=== PATIENT | female | born 1990 | race African-American/Black ===

== ENCOUNTER 2024-08-16 00:01 | Outpatient (REF) | payer OTHER, SELFPAY ==
--- OUTSIDE RECORDS SUMMARY | 2018-08-30 10:13 | XMS_ITS | Continuity of Care Document ---
Author Organization [facility] Address [address] [place] [address] Phone Care Team Providers Care Managed Care Director Name Role Phone Clifford Karen CHAPPELL Unavailable Unavaila ble Advance Directives Directive Yes / No Effective Date File Name No Information Encounters Encounter Description Practice Location Reason(s) For Visit Diagnoses Date Provider Providers Copied on Encounter [facility], [address] [place] [address], [id number], [place] tel:[phone] [facility] No Information Clifford [place] Jones. [address], [place], [id number], [place]. tel:[phone] Family History Family Member Type Diagnosis Age [...]
--- OUTSIDE RECORDS SUMMARY | 2024-08-16 15:30 | XMS_ITS | Encounter Summary ---
Author Organization [facility] Address [address] [place] [address] Care Team Providers Care R&D Engineer Name Role Phone Carlos Whitley MD Primary Care Provider [phone] Reason for Visit * Reason Comments Colposcopy Encounter Details Date Type Department Care Team ([facility] Contact Info) Description 08/16/2024 3:30 PM EDT Procedure Visit [facility] [address] [place] [id number] Bandar Williamson, DO [address] [facility] [place] [address] LGSIL on Pap smear of cervix Social History Tobacco Use Types Packs/Day Years Used Date Smoking Tobacco: Every Day Cigarettes Comments:Patient smokes 6-10 cigarettes/day after 6-30 minutes of waking up. Thinking about quitting. Alcohol Use Standard Drinks/Week Comments Yes 0 (1 standard drink = 0.6 oz pure alcohol) caffeine: 2-3 cups of tea per day cut back to 2 daily AUDIT-C Answer Date Recorded Q1: How often do you have a drink containing alc ohol? Monthly or less 03/27/2024 Q2: How many drinks containi ng alcohol do you have on a typical day when you are drinking? 1 or 2 03/27/2024 Q3: How often do you have si x or more drinks on one occasion? Less than monthly 03/27/2024 PHQ-2 Answer Date Recorded Patient Health Questionnaire-2 Score 0 03/27/2024 Education Answer Date Recorded What is the highest level of school you have completed or the highest degree you have received? Some college, no degree 12/17/2022 Comments No Sex and Gender Information Value Date Recorded Sex Assigned at Not on file Legal Sex Female 6:39 PM EDT Gender Identity Not on file Sexual Orientation Not on file documented as of this encounter Last Filed Vital Signs Vital Sign Reading Time Taken Comments Blood Pressure 116/70 08/16/2024 3:57 PM EDT Pulse - - Temperature - - Respiratory Rate - - Oxygen Saturation - - Inhaled Oxygen Concentration - - Weight 74.4 kg (164 lb) 08/16/2024 3:57 PM EDT Height - - Body Mass Index 27.29 06/29/2022 12:00 PM EDT documented in this encounter Plan of Treatment Upcoming Encounters Date Type Department Care Team (Late st Contact Info) Description 02/27/2025 9:00 AM EST Procedure Visit [facility] [address] [facility] [place] [address] TeriBandar valdez DO [address] [place] [address] [place] [address] Scheduled Orders Name Type Priority Associated Diagnoses Orde r Schedule Colposcopy Procedures Routine LGSIL on Pap smear of cervix Expected: 08/16/2024 (Approximate), Expires: 08/16/2025 Colposcopy Procedures Routine LGSIL on Pap smear of cervix Ordered: 08/16/2024 documented as of this encounter Procedures Procedure Name Priority Date/Time Associated Diagnosis Comments POCT , URINE Routine 08/16/2024 4:05 PM EDT LGSIL on Pap smear of cervix documented in this encounter Results * POC , urine (08/16/2024 4:05 PM EDT) Preg Test, Ur Negative Negative Urine 08/16/2024 4:05 PM EDT Bandar Williamson DO POINT OF CARE TEST ENTER/EDIT OR DERABLES Final Result documented in this encounter Visit Diagnoses Diagnosis LGSIL on Pap smear of cervix documented in this encounter Care Teams R&D Engineer Relationship Specialty Start Date End Date Carlos Whitley MD [address] [place] [address] PCP - General Pediatrics 03/27/24 documented as of this encounter
--- OUTSIDE RECORDS SUMMARY | 2024-08-18 06:45 | XMS_ITS ---
Author Organization [facility] Address [address] [place] [address] Care Team Providers Care Tumbling Machine Operator Name Role Phone Mercy Braga Primary Care Provider REASON FOR VISIT THROAT PAIN-WANTING ENT REFERRAL Encounters Encounter Location Date Provider Diagnosis [facility] [address] [place] [address] 08/18/2024 Mercy Braga Plan Of Treatment Next Appt Details Provider Name:Mercy kee, 08/24/2024 02:45:00 PM, [address] [facility] [place], [address], Progress Notes * SAMARA TRIANADOB:[birth year] (34 yo F)Acc No.[id number]:08/18/2024 Progress Notes Patient: Corrine MAHAN SAMARA Provider: ELAINE Garzon :1990 A ge:34 Y S ex:Female Date:08/18/2024 Address:[address] [place] [address] [place], [phone] Subjective: * Chief Complaints: * 1 . THROAT PAIN-WANTING ENT REFERRAL. * Medical History: Objective: * Vitals: Assessment: Plan: * Treatment: * Images: * Electronic signature of Saige Braga CNP on 08/24/2024 at 09:22 AM EDT Sign off status: Pending * Provider: ELAINE Garzon Date: 0 08/18/2024 Generated for Yarely vazquez/Hazel/Yobani on: 0 08/24/2024 09:22 AM EDT
--- OUTSIDE RECORDS SUMMARY | 2024-08-24 09:22 | XMS_ITS | Encounter Summary ---
Author Organization [facility] Address [address] [place] [address] Phone Care Team Providers Care Hand Buffer Name Role Phone Enma Jeffrey MD Primary Care Provider [phone] Encounter Details Date Type Department Care Team ([facility] Contact Info) Description 08/15/2024 Orders Only [facility] [place] [address] [facility] [address] [place] [address] Gloria Hamilton, HEEL WHEELER-INDUSTRIAL MAINTENANCE INSTRUCTOR, HEEL WHEELER-POLISHING MACHINE OPERATOR [address] Department [place] [address] АЛЕКСАНДР (generalized anxiety disorder) Social History Tobacco Use Types Packs/Day Years Used Date Smoking Tobacco: Some Days Cigarettes Smokeless Tobacco: Never Comments Unknown Sex and Gender Information Value Date Recorded Sex Assigned at Female 07/21/2023 10:38 AM EDT Legal Sex Female 11:16 AM EST Gender Identity Female 07/21/2023 10:38 AM EDT Sexual Orientation Straight 07/21/2023 10 :38 AM EDT documented as of this encounter Plan of Treatment Upcoming Encounters Date Type Department Care Team ([facility] Contact Info) Description 08/30/2024 11:30 AM EDT Telemedicine [facility] [address] [place] [address] [address] [place] [phone] Gloria Hamilton, HEEL WHEELER-INDUSTRIAL MAINTENANCE INSTRUCTOR, HEEL WHEELER-POLISHING MACHINE OPERATOR [address] [place] [address] documented as of this encounter Visit Diagnoses Diagnosis АЛЕКСАНДР (generalized anxiety disorder) Generalized anxiety disorder documented in this encounter Care Teams Hand Buffer Relationship Specialty Start Date End Date Enma Jeffrey MD [address] as of 11/15/2015 [place] [address] PCP - General 10/05/14 documented as of this encounter
--- OUTSIDE RECORDS SUMMARY | 2024-08-24 09:22 | XMS_ITS | Clinical Summary ---
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 benefit for anxious sx. Expressing motivation to reduce clonazepam use. Has been attempting to skip doses recently. We discussed risk for w/d sx, and that best approach is gradual reduction over time. Encouraged to start with decreasing one dose by 1/2 tablet for several weeks, and that in many cases it's best to defer further dose reduction for a month or more. Continue venlafaxine ER 75 mg PO daily. She will attempt reduction of clonazepam by 1/2 tab daily (e.g. take 1/2 tab PO daily, 1 tab in the afternoon, and 1 tab at bedtime) over the next month. Reviewed OARRS, no discrepancies or concerns. Discussed risk of motor/cognitive impairment, sedation, dependence, tolerance, abuse, withdrawal sequelae, accidental overdose, life-threatening respiratory depression (gene. in combination with alcohol and/or opioids), excess sedation in combination with other sedating medicines. Goal is to taper off of clonazepam as routine medications and non-pharmacologic strategies reach benefit. UDS from 10/26 consistent with current rx's and report cannabis use. No discrepancies. Assessment & Plan (10/27/2023 6:28 PM EDT): Reports worsening anxious and depressive sx over the past several weeks. Still notes overall benefit from venlafaxine, but seems to have waned somewhat. Receptive to further titration. Discussed indication(s), reviewed risks/benefits/alternatives. Increase venlafaxine ER to 75 mg PO daily. Continue clonazepam 0.5 mg PO TID- refill sent to pharmacy today. Reviewed OARRS, no discrepancies or concerns. Discussed risk of motor/cognitive impairment, sedation, dependence, tolerance, abuse, withdrawal sequelae, accidental overdose, life-threatening respiratory depression (gene. in combination with alcohol and/or opioids), excess sedation in combination with other sedating medicines. Goal is to taper off of clonazepam as routine medications and non-pharmacologic strategies reach benefit. UDS collected in-office today. Assessment & Plan (08/25/2023 11:01 AM EDT): Tolerated starting venlafaxine with some initial drowsiness that has since resolved, and some mild, intermittent GI upset that is also improving. Noting benefit after ~6 weeks. Will continue current dose. Continue venlafaxine ER 37.5 mg PO daily- refill sent to [facility] pharmacy today. Continue clonazepam 0.5 mg PO TID- refill on file at [facility] pharmacy. Reviewed OARRS, no discrepancies or concerns. Discussed risk of motor/cognitive impairment, sedation, dependence, tolerance, abuse, withdrawal sequelae, accidental overdose, life-threatening respiratory depression (gene. in combination with alcohol and/or opioids), excess sedation in combination with other sedating medicines. Goal is to taper off of clonazepam as routine medications and non-pharmacologic strategies reach benefit. Assessment & Plan (07/21/2023 5:58 PM EDT): Self-tapered off of fluoxetine d/t concern for weight gain as a side effect. Anxious sx have worsened since tapering off. Discussed alternatives and will start venlafaxine. Discussed indication(s), reviewed risks/benefits/alternatives. Self-discontinued fluoxetine. Start venlafaxine ER 37.5 mg PO daily. Continue clonazepam 0.5 mg PO TID- refill sent to pharmacy today. Reviewed OARRS, no discrepancies or concerns. Discussed risk of motor/cognitive impairment, sedation, dependence, tolerance, abuse, withdrawal sequelae, accidental overdose, life-threatening respiratory depression (gene. in combination with alcohol and/or opioids), excess sedation in combination with other sedating medicines. Goal is to taper off of clonazepam as routine medications and non-pharmacologic strategies reach benefit. Assessment & Plan (03/04/2023 2:24 PM EST): Tolerating and benefiting from current regimen. No indication for medication changes today. Continue fluoxetine 40 mg PO daily- no refill needed today. Continue clonazepam 0.5 mg PO TID- no refill needed today. Reviewed OARRS, no discrepancies or concerns. Discussed risk of motor/cognitive impairment, sedation, dependence, tolerance, abuse, withdrawal sequelae, accidental overdose, life-threatening respiratory depression (gene. in combination with alcohol and/or opioids), excess sedation in combination with other sedating medicines. Goal is to taper off of clonazepam as routine medications and non-pharmacologic strategies reach benefit. Assessment & Plan (01/13/2023 2:34 PM EST): Tolerating and benefiting from current regimen. No indication for medication changes today. Discussed sleep hygiene and that difficulty sleeping, as well as daytime fatigue is likely r/t inadequate sleep. Identified strategies to improve this and acknowledged/validated challenges she's facing d/t the multiple demands placed on her. Would not recommend PRN medication for sleep at this time. Continue fluoxetine 40 mg PO daily- refill sent to pharmacy today. Continue clonazepam 0.5 mg PO TID- refill sent to pharmacy today. Reviewed OARRS, no discrepancies or concerns. Discussed risk of motor/cognitive impairment, sedation, dependence, tolerance, abuse, withdrawal sequelae, accidental overdose, life-threatening respiratory depression (gene. in combination with alcohol and/or opioids), excess sedation in combination with other sedating medicines. Goal is to taper off of clonazepam as routine medications and non-pharmacologic strategies reach benefit. Contact with and (suspected) exposure to covid-1 9 09/02/2021 Opioid withdrawal (Multi) 09/02/2021 Overview (04/20/2024): Comment on above: Added secondary to documentation in Social History. Smoking (tobacco) complicating childbirth ([facility]) 09/02/2021 Patient's noncompliance with other medical treatment and regimen due to financial hardship 09/02/2021 Maternal care for other know n or suspected poor growth, third trimester, not applicable or unspecified 08/28/2021 Low lying placenta nos or wi thout hemorrhage, unspecified trimester ([facility]) 04/30/2021 Encounter for screening for Streptococ cus B 04/09/2021 ([facility]) 05/20/2019 Encounters Date Type Department Care Team Description 08/15/2024 Orders Only [facility] [address] [place] [address] Gloria Hamilton, MANAGER CODING-HOME VISIT FIELD CARE MANAGER, MANAGER CODING-INTEGRATION SOFTWARE DEVELOPER АЛЕКСАНДР (generalized anxiety disorder) 07/26/2024 11:00 AM EDT [facility] [address] [place] [address] Gloria Hamilton, MANAGER CODING-HOME VISIT FIELD CARE MANAGER, MANAGER CODING-INTEGRATION SOFTWARE DEVELOPER АЛЕКСАНДР (generalized anxiety disorder); Current moderate episode of major depressive disorder, unspecified whether recurrent (Multi); Opioid use disorder, moderate, in sustained remission, dependence (Multi); Marijuana dependence (Multi) 07/03/2024 Refill [facility] [address] [place] [address] Gloria Hamilton APRN-HOME VISIT FIELD CARE MANAGER, MANAGER CODING-INTEGRATION SOFTWARE DEVELOPER АЛЕКСАНДР (generalized anxiety disorder) 06/13/2024 Orders Only [facility] [place] [address] [place] [phone] Gloria Hamilton, RJ-[place], MANAGER CODING-INTEGRATION SOFTWARE DEVELOPER Opioid use disorder, moderate, in sustained remission, dependence (Multi) 05/25/2024 2:00 PM EDT Telemedicine [facility] [address] [place] [address] Gloria Hamilton, RJ-HOME VISIT FIELD CARE MANAGER, MANAGER CODING-INTEGRATION SOFTWARE DEVELOPER АЛЕКСАНДР (generalized anxiety disorder); Current moderate episode of major depressive disorder, unspecified whether recurrent (Multi); Opioid use disorder, moderate, in sustained remission, dependence (Multi); Marijuana dependence (Multi) from Last 3 Months Immunizations Immunization Administration Dates Next Due Flu vaccine (IIV4), preservative free *Check age /dose* 11/19/2014 Influenza, injectable, quadrivalent 11/19/2014 Tdap vaccine, age 7 year and older (BOOSTRIX, AD ACEL) 11/08/2014,03/23/2012 Social History Tobacco Use Types Packs/Day Years Used Date Smoking Tobacco: Some Days Cigarettes Smokeless Tobacco: Never Tobacco Cessation:Ready to Q uit: Not Asked; Counseling Given: Not Answered Comments Unknown Sex and Gender Information Value Date Recorded Sex Assigned at Female 07/21/2023 10:38 AM EDT Legal Sex Female 11:16 AM EST Gender Identity Female 07/21/2023 10:38 AM EDT Sexual Orientation Straight 07/21/2023 10 :38 AM EDT Last Filed Vital Signs Vital Sign Reading Time Taken Comments Blood Pressure 131/84 10/27/2023 11:35 AM EDT Pulse 82 10/27/2023 11:35 AM EDT Temperature 36.9 C (98.4 F) 10/27/2023 11:35 AM EDT Respiratory Rate 18 10/27/2023 11:3 5 AM EDT Oxygen Saturation 100% 03/04/2022 10: 05 AM EST Inhaled Oxygen Concentration - - Weight 70.6 kg (155 lb 11.2 oz) 024 11:35 AM EDT Height 162.6 cm (5' 4 ) 10/27/2023 11:3 5 AM EDT Body Mass Index 26.73 10/27/2023 11:35 AM EDT Plan of Treatment Upcoming Encounters Date Type Department Care Team (Late st Contact Info) Description 08/30/2024 11:30 AM EDT Telemedicine [facility] [address] [place] [address] Gloria Hamilton, MANAGER CODING-HOME VISIT FIELD CARE MANAGER, MANAGER CODING-INTEGRATION SOFTWARE DEVELOPER [id number] Department [place] [address] Health Maintenance Due Date Last Done Comments HIV Screening 1989 Lipid Panel 1989 MMR Vaccines (1 of 1 - Standard series) 1990 Varicella Vaccines (1 of 2 - 13+ 2-dose series) 2002 Diabetes Screening 04/24/2007 Hepatitis C Screening 04/24/2007 Hepatitis B Vaccines (1 of 3 - 19+ 3-dose series) 2008 Pneumococcal Vaccine: Pediatrics and At-Risk Adult Patients (1 of 2 - PCV) 2008 HPV/Cotest 2010 COVID-19 Vaccine (1 - 2023-2 5 season) 2023 Influenza Vaccine (Season Ended) 2024 11/19/2014, 11/19/2014 DTaP/Tdap/Td Vaccines (3 - T d or Tdap) 11/08/2024 11/08/2014, 03/23/2012 Yearly Adult Physical 03/28/2025 03/27/2024 Cervical Cancer Screening 03/27/2027 Pap Smear 03/27/2027 03/27/2024 Zoster Vaccines (1 of 2) 04/24/2039 HIB Vaccines Aged Out No longer eligi ble based on patient's age to complete this topic HPV Vaccines (No Doses Required) Completed Hepatitis A Vaccines Aged Out No long er eligible based on patient's age to complete this topic IPV Vaccines Aged Out No longer eligi ble based on patient's age to complete this topic Meningococcal Vaccine Aged Out No bean fitz eligible based on patient's age to complete this topic Rotavirus Vaccines Aged Out No longer eligible based on patient's age to complete this topic Insurance [employer] Care Teams Iv Therapy Nurse Relationship Specialty Start Date End Date Enma Jeffrey MD [address] as of 11/15/2015 [place] [phone] PCP - General 10/05/14
--- OUTSIDE RECORDS SUMMARY | 2024-08-24 09:22 | XMS_ITS | Clinical Summary ---
Author Organization [facility] Address [address] [place] [address] Care Team Providers Care Irrigation Foreman Name Role Phone PriyaKasi (Historical) Primary Care Provider Enma Jeffrey MD Unavailable [phone] Allergies Active Allergy Reactions Criticality Noted Date Comments Acetaminophen Vomiting 08/27/2011 Medications buprenorphine-n alOXone SL (SUBOXONE) 8-2 mg subl Buprenorphine-N aloxone Active 8 MG SUBLINGUAL Three times daily November 19, 2017 10:37am 6 Active clonazePAM (KLONOPIN) 0.5 mg tablet Take by mouth. 0 Active PNV no.95/ferrous fum/folic ac ( ORAL) Take by mouth. Active docusate sodium (COLACE) 100 mg capsule Take 1 capsule by mouth twice daily. 60 capsule 5 1 Active promethazine (PHENERGAN) 25 mg tablet Take 1 tablet by mouth every 4 hours as needed. 30 tablet 2 Active Active Problems No known active problems Family History Medical History Relation Comments Alcohol abuse Father Bipolar disorder Father Hypertension Father Bipolar disorder Paternal Uncle 1 Schizophrenia Paternal Uncle 1 Bipolar disorder Paternal Uncle 2 Bipolar disorder Sister 1 Bipolar disorder Sister 2 Relation Status Comments Father Paternal Uncle 1 Alive Paternal Uncle 2 Alive Paternal Uncle 3 Paternal Uncle 4 Sister 1 Sister 2 Alive Social History Tobacco Use Types Packs/Day Years Used Date Smoking Tobacco: Every Day Smokeless Tobacco: Never Alcohol Use Standard Drinks/Week Comments Not Currently 0 (1 standard drink = 0.6 oz pur e alcohol) Overall Financial Resource Strain (CARDIA) Answe r Date Recorded How hard is it for you to pa y for the very basics like food, housing, medical care, and heating? Somewhat hard 02/03/2021 Hunger Vital Sign Answer Date Recorded Within the past 12 months, y ou worried that your food would run out before you got the money to buy more. Never true 02/04/20 21 Within the past 12 months, t he food you bought just didn't last and you didn't have money to get more. Never true 02/03/2021 PRAPARE - Transportation Answer Date Re corded In the past 12 months, has l ack of transportation kept you from medical appointments or from getting medications? No 01/22 In the past 12 months, has l ack of transportation kept you from meetings, work, or from getting things needed for daily living? No 02/03/2021 Housing Stability Vital Sign Answer Domo e Recorded In the last 12 months, was t here a time when you were not able to pay the mortgage or rent on time? No 02/03/2021 In the last 12 months, how many places have you lived? 1 02/03/2021 In the last 12 months, was t here a time when you did not have a steady place to sleep or slept in a mcfp (including now)? No 02/03/2021 Area Deprivation Index Answer Date Jatinder rded National Score (1-100), lower number is lower ri sk 86 04/03/2024 State Score (1-10), lower number is lower risk 8 04/03/2024 Data from: https://www.neighborhoodatlas.medicine.[facility].edu/. Last address used for calculation [address] 04/03/2024 Comments No Sex and Gender Information Value Date Recorded Sex Assigned at Female 01/26/2021 2:42 AM EST Legal Sex Female 10:15 AM EST Gender Identity Female 01/26/2021 2:42 AM EST Sexual Orientation Not on file Last Filed Vital Signs Vital Sign Reading Time Taken Comments Blood Pressure 112/68 01/28/2021 1:34 PM EST Pulse 95 01/28/2021 1:34 PM EST Temperature 36.4 C (97.6 F) 08/27/2011 11:04 PM EDT Respiratory Rate 18 08/28/2011 2:55 AM EDT Oxygen Saturation 98% 08/28/2011 2:55 AM EDT Inhaled Oxygen Concentration - - Weight 59 kg (130 lb) 01/28/2021 1:34 PM EST Height 166.4 cm (5' 5.5 ) 01/28/2021 1:34 PM EST Body Mass Index 21.3 01/28/2021 1:34 PM EST Plan of Treatment Health Maintenance Due Date Last Done Comments Anxiety Screening 04/24/2007 Depression Screening 04/24/2007 HIV Screening 04/24/2007 Hepatitis C Screening 04/24/2007 Hepatitis B Vaccine (1 of 3 - 19+ 3-dose series) 2008 Covid-19 Vaccine (2023-2 5 season) 2023 Cervical Cancer Screening 01/29/20242020, 01/28/2021, 07/27/2011 Influenza Vaccine (Season Ended) 2024 11/20/19 15 DTaP,Tdap,Td Vaccine (3 - Td or Tdap) 11/08/2024 11/08/2014, 03/23/2012 Procedures Procedure Name Priority Date/Time Associated Diagnosis Comments PAP FLUID CERVICAL SCREENING Routine 01/28/2021 2:26 PM EST 10 weeks gestation of care, subsequent in first trimester Drug abuse counseling and surveillance of drug abuser from Last 3 Months or Most Recently Relevant to Health Maintenance Results * (ABNORMAL) PAP FLUID CERVICAL SCREENING (01/28/2021 2:26 PM EST) Stock Room Manager ADDITIONAL PROCEDURES PRESENT ---Abnormal Pap Test - Epithelial Cell Abnormality--- Specimen originated from [facility] Specimen #: [id number] Submitting Physician: RIDDHI BUCKNER M.D. SPECIMEN SUBMITTED A: CERVICAL, SCREENING, FLUID FINAL DIAGNOSIS A. CERVICAL, SCREENING, FLUID Satisfactory for interpretation. Epithelial cell abnormality. Atypical squamous cells cannot exclude high grade squamous intraepithelial lesion (ASC-H). COMMENT: Suggest colposcopy/biopsy as clinically indicated. Results from the ASCUS/LSIL triage study found that interpretations of ASC-H were associated with a higher risk of underlying HSIL (JOE 2 or worse; 30-40%). This case has been reviewed by my colleague, Dr. Mercy Leyva (Cytology/[facility]colo [facility] Pathology), who concurs. This specimen has been analyzed by the ThinPrep Imaging System, an automated imaging and review system, which assists the laboratory in evaluating cells on ThinPrep Pap tests. Following automated imaging, selected prabhakar from every slide are reviewed by a airplane rigger. Seda Paez M.D. (Electronic Signature) ADDITIONAL PROCEDURE(S) HUMAN PAPILLOMA VIRUS Date Ordered: 01/29/2021 Date Reported: 01/30/2021 Procedure Results and Interpretation Negative for HPV DNA high risk type 16 by PCR. Negative for HPV DNA high risk type 18 by PCR. Negative for HPV DNA high risk types: 31,33,35,39,45,51, 52,56,58,59,66,68 by PCR. This test was developed and its performance characteristics determined by [facility]'s Cortez Sharma [facility] Pathology and Laboratory Medicine [place] ([facility]). It has not been cleared or approved by the FDA. [facility] is regulated under CLIA as qualified to perform high-complexity testing. This test is used for clinical purposes. It should not be regarded as investigational or for research. CLINICAL DATA ROUTINE EXAM, HPV Testing: Yes, automatic HPV patients over 30 Date of Last Menstrual Period: 11/19/2020( ) STAINS A: CERVICAL, SCREENING, FLUID THIN PREP LONG HAUL TRUCK DRIVER Date of Report: 02/04/2021 Date of Procedure: 01/28/2021 Date of Receipt: 01/29/2021 Submitted by: RIDDHI BUCKNER M.D. Location: [facility] Diagnostic interpretation performed at [facility], [address] [place] [address]. [place] Number: [id number] The Pap Smear is a screening test for cervical cancer. False negative results occur with all screening tests, emphasizing the need for rescreening at recommended intervals, and clinical correlation.(A) COPATHPLUS Cervix SPECIMEN FROM CERVIX OR VAGINA / Unknown 01/28/2021 2:26 PM EST 01/29/2021 12:19 PM EST Riddhi Buckner MD CYTOLOGY Edited Result - Final COPATHPLUS [address] [place] [address] from Last 3 Months or Most Recently Relevant to Health Maintenance Insurance [employer] Member Subscriber Plan / Payer (Ef fective 2022-Present) Name:Gloria Cunningham Relation to Subscriber:Self Name:Gloria Cunningham Payer ID:[id number] (NAIC) Group ID:[id number] Type:Medicaid Address: [place] [id number] Care Teams Irrigation Foreman Relationship Specialty Start Date End Date JuneKasi (Historical) PCP - General 07/21/11 Enma Jeffrey MD [address] [place] [phone] Referring Classification And Treatment Director 03/31/24
--- OUTSIDE RECORDS SUMMARY | 2024-08-24 09:23 | XMS_ITS | Encounter Summary ---
Author Organization [facility] Address [address] [place] [address] Care Team Providers Care Cripple Chaser Name Role Phone Kasi Powers (Historical) Primary Care Provider Enma Jeffrey MD Unavailable [phone] Source Comments In the event this information is protected by the Federal Confidentiality of Alcohol and Drug AbusePatient Records regulations: The Federal rules restrict any use of the information to criminally investigate or prosecute any alcohol or drug abuse patient.[facility] Encounter Details Date Type Department Care Team ([facility] Contact Info) Description 03/26/2021 Patient Msg Obstetrics/Gynecology [address] [place] [address] Provider, Bienvenido Missed Appointment Social History Tobacco Use Types Packs/Day Years [...] place to sleep or slept in a detention (including now)? No 02/03/2021 Area Deprivation Index Answer Date Jatinder rded National Score (1-100), lower number is lower ri sk Not on file 07/24/2020 State Score (1-10), lower number is lower risk N ot on file 07/24/2020 Data from: https://www.neighborhoodatlas.medicine.[facility].edu/. Last address used for calculation Not on file 07/24/2020 Comments Yes Sex and Gender Information Value Date Recorded Sex Assigned at Female 01/26/2021 2:42 AM EST Legal Sex Female 10:15 AM EST Gender Identity Female 01/26/2021 2:42 AM EST Sexual Orientation Not on file documented as of this encounter Plan of Treatment Not on file documented as of this encounter Visit Diagnoses Not on filedocumented in this encounter Care Teams Cripple Chaser Relationship Specialty Start Date End Date June, Kasi Castle (Historical) PCP - General 07/21/11 nEma Jeffrey MD [address] [place] [address] Referring Adjunct Psychology Instructor 03/31/24 documented as of this encounter
--- OUTSIDE RECORDS SUMMARY | 2024-08-24 09:23 | XMS_ITS | Encounter Summary ---
Author Organization [facility] Address [address] [place] [address] Care Team Providers Care Watch Dial Printer Name Role Phone Carlos Whitley MD Primary Care Provider [phone] Encounter Details Date Type Department Care Team (Late st Contact Info) Description 08/16/2024 External Result Encounter [facility] External Department Unsolicited Bandar Williamson, DO [address] [place] [address] Social History Tobacco Use Types Packs/Day Years [...] EST Procedure Visit [facility] [address] [id number] Bandar Williamson, DO [address] [place] [address] documented as of this encounter Procedures Procedure Name Priority Date/Time Associated Diagnosis Comments PATHOLOGY REQUEST FOR LAB [facility] Routine 08/16/2024 12:00 AM EDT documented in this encounter Results * PATHOLOGY REQUEST FOR LAB [facility] (08/16/2024 12:00 AM EDT) PATHOLOGY REQUEST FOR LAB [facility] 08/23/2024 2:46 PM EDT [facility] Comment:See report. Scanned copy available in EMR. Other Topography unknown / Unknown 08/16/2024 08/17/2024 1:18 PM EDT Narrative [facility] - 08/23/2024 2:46 PM EDT ECC Bandar Williamson DO LAB BLOOD ORDERABLES Final Resul t [facility] [address] [place] [address], [facility] [address] [place] [address] documented in this encounter Visit Diagnoses Not on filedocumented in this encounter Care Teams Watch Dial Printer Relationship Specialty Start Date End Date Carlos Whitley MD [address] [place] [address] PCP - General Pediatrics 03/27/24 documented as of this encounter
--- OUTSIDE RECORDS SUMMARY | 2024-08-24 09:23 | XMS_ITS | Encounter Summary ---
Author Organization [facility] Address [address] [place] [id number] Care Team Providers Care Manager Contact Name Role Phone Kasi Powers (Historical) Primary Care Provider Enma Jeffrey MD Unavailable [phone] Source Comments In the event this information is protected by the Federal Confidentiality of Alcohol and Drug AbusePatient Records regulations: The Federal rules restrict any use of the information to criminally investigate or prosecute any alcohol or drug abuse patient.[facility] Encounter Details Date Type Department Care Team ([facility] Contact Info) Description 01/28/2021 Patient Msg Pediatrics [address] [place] [address] Provider, [facility] Pre-Stephanie consult Social History Tobacco Use Types Packs/Day Years Used Date Smoking Tobacco: Every Day Smokeless Tobacco: Never Alcohol Use Standard Drinks/Week Comments Not Currently 0 (1 standard drink = 0.6 oz pur e alcohol) Area Deprivation Index Answer Date Jatinder rded National Score (1-100), lower number is lower ri sk Not on file 07/24/2020 State Score (1-10), lower number is lower risk N ot on file 07/24/2020 Data from: https://www.neighborhoodatlas.medicine.[facility].edu/. Last address used for calculation Not on file 07/24/2020 Comments Yes Sex and Gender Information Value Date Recorded Sex Assigned at Female 01/26/2021 2:42 AM EST Legal Sex Female 10:15 AM EST Gender Identity Female 01/26/2021 2:42 AM EST Sexual Orientation Not on file COVID-19 Exposure Response Date Recorded In the last month, have you been in contact with someone who was confirmed or suspected to have Coronavirus / COVID-19? No / Unsure 01/28/2021 1:33 PM EST documented as of this encounter Plan of Treatment Not on file documented as of this encounter Visit Diagnoses Not on filedocumented in this encounter Care Teams Manager Contact Relationship Specialty Start Date End Date June, Kasi Castle (Historical) PCP - General 07/21/11 Enma Jeffrey MD [address] [facility] [address] [place] [address] Referring Salvage Worker 03/31/24 documented as of this encounter
--- OUTSIDE RECORDS SUMMARY | 2024-08-24 09:23 | XMS_ITS | Encounter Summary ---
Author Organization [facility] Address [address] [place] [id number] Care Team Providers Care Book Shelver Name Role Phone Kasi Powers (Historical) Primary Care Provider Enma Jeffrey MD Unavailable [phone] Source Comments In the event this information is protected by the Federal Confidentiality of Alcohol and Drug AbusePatient Records regulations: The Federal rules restrict any use of the information to criminally investigate or prosecute any alcohol or drug abuse patient.[facility] Encounter Details Date Type Department Care Team ([facility] Contact Info) Description 01/31/2021 Patient Msg Obstetrics/Gynecology [address] [place] [address] Provider, [facility] Social History Tobacco Use Types Packs/Day Years [...] place to sleep or slept in a prison (including now)? No 02/03/2021 Area Deprivation Index Answer Date Jatinder rded National Score (1-100), lower number is lower ri sk Not on file 07/24/2020 State Score (1-10), lower number is lower risk N ot on file 07/24/2020 Data from: https://www.neighborhoodatlas.medicine.[facility].edu/. Last address used for calculation Not on [...] on filedocumented in this encounter Care Teams Book Shelver Relationship Specialty Start Date End Date June, Kasi Castle (Historical) PCP - General 07/21/11 Enma Jeffrey MD [address] [facility] [address] [place] [id number] Referring Core Winder Machine Operator 03/31/24 documented as of this encounter
--- OUTSIDE RECORDS SUMMARY | 2024-08-24 09:23 | XMS_ITS | Patient Health Record ---
Author Organization [facility] Servic es Address [address] [place] [address] Care Team Providers Care Campus Security Officer Name Role Phone Mercy Braga Primary Care Provider Yumi Bentley Unavailable [phone] Norma Loco Unavailable [phone] Allergies No Known Allergies Results Component Value Reference Range Notes Urine Culture Reviewed date:03/14/2024 08:28:39 PM Interpretation: Performing Lab:, [facility], [address] [place] Notes/Report: HCG,Urine Reviewed date:03/12/2024 05:10:22 AM Interpretation: Performing Lab: Notes/Report: Name Collection Type:: Clean-Voided Midstream HCG Qualitative,Urine Negative Complete Blood Count Auto Di ff Reviewed date:03/12/2024 05:10:22 AM Interpretation: Performing Lab:, [facility], [address] [place] Notes/Report: For adults in ED, MDW > 20.0 may be associated with a higher risk of sepsis during the first 12 hrs of hospital admission White Blood Count 6.7 3.8-11.6 10*3/uL Uncorrected WBC 6.7 3.8-11.6 10*3/uL Red Blood Count 4.43 3.60-5.00 10*6/uL Hemoglobin 13.8 11.8-15.4 g/dL Hematocrit 40.4 34.0-46.4 % Mean Corpuscular Volume 91.2 80-100 fL Mean Corpuscular Hemoglobin 31.2 24.7-34.3 pg Mean Corpuscular HGB Conc 34.2 32.0-35.0 g/dL Red Cell Distribution Width 12.4 11.9-15.3 % Platelet Count 168 150-450 10*3/uL Mean Platelet Volume 9.3 6.3-10.7 fL Neutrophils % (Auto) 56.3 . % Lymphocytes % (Auto) 32.9 . % Monocytes % (Auto) 8.5 . % Eosinophils % (Auto) 1.2 . % Basophils % (Auto) 1.1 . % NRBC% 0.1 0-0.5 /100{WBC} Neutrophils # (Auto) 3.8 1.8-7.7 10*3/uL Lymphocytes # (Auto) 2.2 1.00-4.8 10*3/uL Monocytes # (Auto) 0.6 0.0-0.8 10*3/uL Eosinophils # (Auto) 0.1 0.0-0.45 10*3/uL Basophils # (Auto) 0.1 0.0-0.2 10*3/uL Monocyte Distribution Width 20.06 0.00-20.00 % Hepatic Panel Reviewed date:03/12/2024 05:10:22 AM Interpretation: Performing Lab:, [facility], [address] [place] Notes/Report: Total Protein 7.6 6.4-8.9 g/dL Albumin Level 4.3 3.5-5.7 g/dL Globulin 3.3 Albumin/Globulin Ratio 1.3 Bilirubin,Total 0.3 0.3-1.0 mg/dL Bilirubin,Direct 0.00 0.03-0.18 mg/dL If the DBIL is less than 0.1, IBIL is not able to be calculated. Bilirubin,Indirect 0.3 Aspartate Amino Transferase 18 13-39 U/L Alanine Aminotransferase 13 7-52 U/L Alkaline Phosphatase 55 34-104 U/L Basic Metabolic Panel Reviewed date:03/12/2024 05:10:22 AM Interpretation: Performing Lab: Notes/Report: Glucose 89 70-100 mg/dL Random Glucose Reference Range is dependent on time and content of last meal. Glucose of more than 200 mg/dL in a nonstressed, ambulatory subject supports the diagnosis of Diabetes Mellitus. ADA recommended reference range Blood Urea Nitrogen 14 7-25 mg/dL Sodium 137 136-145 mmol/L Potassium 4.7 3.5-5.1 mmol/L Chloride 105 98-107 mmol/L Carbon Dioxide 28.3 21.0-31.0 mmol/L Calcium 9.3 8.6-10.3 mg/dL Creatinine 0.97 0.60-1.20 mg/dL Estimated GFR >60.0 Anion Gap 8.4 6.0-15.0 meq/L Creatinine Clr Calc Pharmacy 78.86 Dipstick and Microscopic Reviewed date:03/12/2024 05:10:22 AM Interpretation: Performing Lab:, [facility], [address] [place] Notes/Report: Name Collection Type:: Clean-Voided Midstream Color,Urine Yellow Yellow Appearance,Urine Cloudy Clear Specificy Sur[place],Urine 1.029 1.001-1.030 pH,Urine 6.0 5.0-9.0 Leukocyte Esterase,Urine 3+ Negative Nitrite,Urine Negative Negative Protein,Urine 20 Negative mg/dL Glucose,Urine (UA) Normal Normal Ketones,Urine Trace Negative Urobilinogen,Urine Normal Normal Bilirubin,Urine Negative Negative Occult Blood,Urine Negative Negative RBC,Urine 1-2 0-4 [HPF] WBC,Urine 5-9 0-4 [HPF] Squamous Epithelial Cell,Urine 20-49 0-2 [HPF] Bacteria,Urine 1+ None Seen Hyaline Casts,Urine 0-8 0-8 [LPF] Mucus,Urine 2+ Strep Test Quickview (Not ye t reviewed by provider) Interpretation: Performing Lab: Notes/Report: Result negative Hemoglobin A1c (Not yet revi ewed by provider) Interpretation: Performing Lab: Notes/Report: Hemoglobin A1c 5.0 5 - 7.9 % Urinalysis automated (Not ye t reviewed by provider) Interpretation: Performing Lab: Notes/Report: Urine-Color yellow Appearance clear Specific Surprise 1.015 pH 6.0 Glucose neg Protein neg Occult Blood neg Bilirubin neg Urobilinogen,Semi-Qn 0.2 mg/dl Nitrite, Urine neg Ketones neg WBC Esterase neg Comprehensive Metabolic Pane l Reviewed date:08/23/2024 09:30:27 AM Interpretation: Performing Lab:, [facility], [address] Notes/Report: Reason for Exam Persistent genital arousal disorder;Essential (primary) hype Glucose 78 70-100 mg/dL Random Glucose Reference Range is dependent on time and content of last meal. Glucose of more than 200 mg/dL in a nonstressed, ambulatory subject supports the diagnosis of Diabetes Mellitus. ADA recommended reference range Blood Urea Nitrogen 13 7-25 mg/dL Creatinine 0.88 0.60-1.20 mg/dL Sodium 139 136-145 mmol/L Potassium 4.3 3.5-5.1 mmol/L Chloride 104 98-107 mmol/L Carbon Dioxide 29.9 21.0-31.0 mmol/L Calcium 9.4 8.6-10.3 mg/dL Total Protein 7.1 6.4-8.9 g/dL Albumin Level 4.5 3.5-5.7 g/dL Globulin 2.6 Albumin/Globulin Ratio 1.7 Bilirubin,Total 0.4 0.3-1.0 mg/dL Aspartate Amino Transferase 20 13-39 U/L Alanine Aminotransferase 14 7-52 U/L Alkaline Phosphatase 60 34-104 U/L Estimated GFR >60.0 Anion Gap 9.4 6.0-15.0 meq/L Renal Function Panel Reviewed date:08/23/2024 09:30:27 AM Interpretation: Performing Lab: Notes/Report: Reason for Exam Persistent genital arousal disorder;Essential (primary) hype Phosphorus 3.7 2.5-4.5 mg/dL Thyroid Stim Hormone w/Rflx Reviewed date:08/23/2024 09:30:27 AM Interpretation: Performing Lab: Notes/Report: Reason for Exam Persistent genital arousal disorder;Essential (primary) hype Thyroid Stim Hormone w/Rflx 2.08 0.45-5.33 u[i U]/mL GNURI - Complicated Genitour inary Infection (HTRx) Reviewed date:03/03/2024 08:44:23 AM Interpretation: Performing Lab: Notes/Report: Real-Time polymerase chain reaction (TaqMan qPCR) was utilized for detection for all tested organisms and resistance genes. Initiation of antimicrobial therapy prior to testing may affect results and can lead to the detection of non-living microorganisms. Detection of microbes must be correlated with current/recent antibiotic usage and patient signs and symptoms. Microbial sensitivity testing is not performed at this lab. Director Of Partnerships to CFU/mL equivalent thresholds were established based on studies using known CFU/mL urine specimens performed at [facility] in [place], [place]. Testing performed by [facility] ([address]ne [address], [place] [address]; CLIA# [id number]; Program Manufacturing Leader Anita Murillo, PhD, [facility])). This test was developed, and its performance characteristics determined by [facility]. It has not been cleared or approved by the FDA. However, such approval/clearance is not required, as the laboratory is regulated and qualified under CLIA to perform high-complexity testing. This test is used for clinical purposes and should not be regarded as investigational or for research. *Approximate copies of target nucleic acid per &micro;L (Low: <2,500 copies/&micro;L, Moderate: 2,500-50,000 copies/&micro;L, High: >50,000 copies/&micro;L) National Infectious Disease Consensus Data Potentially effective oral antibiotics, based on presence of detected microbes, antimicrobial resistance genes, and national antimicrobial sensitivity data (see Summary Antibiogram). Acinetobacter baumannii 0.000 19.961 - 24.689 p pm Acinetobacter baumannii Not Detected 19.961 - 24.689 p pm Atopobium vaginae 22.564 19.961 - 24.689 ppm Atopobium vaginae Detected 19.961 - 24.689 ppm BVAB 2,3 (bacterial vaginosi s associated bacteria 2, 3); Mobiluncus spp 23.311 19.961 - 24.689 ppm BVAB 2,3 (bacterial vaginosi s associated bacteria 2, 3); Mobiluncus spp Detected 19.961 - 24.689 ppm Tarcy albicans, parapsilosis, tropicalis 0.000 19.961 - 30.770 ppm Tracy albicans, parapsilosis, tropicalis Not Detected 19.961 - 30.770 ppm Tracy glabrata (Nakaseomyces glabratus) 0.000 23.000 - 32.138 ppm Tracy glabrata (Nakaseomyces glabratus) Not Detected 23.000 - 32.138 ppm Tracy krusei (Pichia kudriavzevii) 0.000 23.000 - 32.271 ppm Tracy krusei (Pichia theosantiaogvii) Not Detected 23.000 - 32.271 ppm Chlamydia trachomatis 0.000 23.000 - 31.467 ppm Chlamydia trachomatis Not Detected 23.000 - 31.467 ppm Citrobacter freundii 0.000 23.000 - 31.881 ppm Citrobacter freundii Not Detected 23.000 - 31.881 ppm Enterobacter aerogenes, cloacae 0.000 23.000 - 31.535 ppm Enterobacter aerogenes, cloacae Not Detected 23.000 - 31.535 ppm Enterococcus faecalis, faecium 0.000 26.000 - 31.575 ppm Enterococcus faecalis, faecium Not Detected 26.000 - 31.575 ppm Escherichia coli 0.000 23.000 - 28.500 ppm Escherichia coli Not Detected 23.000 - 28.500 ppm Gardnerella vaginalis 24.400 19.961 - 24.689 ppm Gardnerella vaginalis Detected 19.961 - 24.689 ppm Klebsiella pneumoniae, oxytoca 0.000 23.000 - 30.500 ppm Klebsiella pneumoniae, oxytoca Not Detected 23.000 - 30.500 ppm Megasphaera (Types 1, 2) 30.850 19.961 - 24.689 ppm Megasphaera (Types 1, 2) Detected 19.961 - 24.689 ppm Morganella morganii 0.000 19.961 - 24.689 ppm Morganella morganii Not Detected 19.961 - 24.689 ppm Neisseria gonorrhoeae 0.000 23.000 - 32.117 ppm Neisseria gonorrhoeae Not Detected 23.000 - 32.117 ppm Proteus mirabilis, vulgaris 0.000 23.000 - 28.5 00 ppm Proteus mirabilis, vulgaris Not Detected 23.000 - 28.5 00 ppm Pseudomonas aeruginosa 0.000 23.000 - 28.500 pp m Pseudomonas aeruginosa Not Detected 23.000 - 28.500 pp m Serratia marcescens 0.000 23.000 - 31.204 ppm Serratia marcescens Not Detected 23.000 - 31.204 ppm Staphylococcus aureus 0.000 26.000 - 30.902 ppm Staphylococcus aureus Not Detected 26.000 - 30.902 ppm Streptococcus agalactiae (Group B Strep) 0.000 26.000 - 32.222 ppm Streptococcus agalactiae (Group B Strep) Not Detected 26.000 - 32.222 ppm Streptococcus pyogenes (Grou p A strep) 0.000 19.961 - 24.689 ppm Streptococcus pyogenes (Grou p A strep) Not Detected 19.961 - 24.689 ppm Trichomonas vaginalis 0.000 23.000 - 32.119 ppm Trichomonas vaginalis Not Detected 23.000 - 32.119 ppm ermB, C; mefA 24.117 23.000 - 27.611 ppm ermB, C; mefA Detected 23.000 - 27.611 ppm tet B, tet M 26.617 23.000 - 27.778 ppm tet B, tet M Detected 23.000 - 27.778 ppm Staphylococcus epidermidis, haemolyticus, lugdunensis 0.000 19.961 - 24.689 ppm Staphylococcus epidermidis, haemolyticus, lugdunensis Not Detected 19.961 - 24.689 ppm Staphylococcus saprophyticus 0.000 19.961 - 24. 689 ppm Staphylococcus saprophyticus Not Detected 19.961 - 24. 689 ppm Mycoplasma genitalium 0.000 19.961 - 24.689 ppm Mycoplasma genitalium Not Detected 19.961 - 24.689 ppm Mycoplasma hominis 0.000 19.961 - 24.689 ppm Mycoplasma hominis Not Detected 19.961 - 24.689 ppm Ureaplasma parvum 0.000 19.961 - 24.689 ppm Ureaplasma parvum Not Detected 19.961 - 24.689 ppm Ureaplasma urealyticum 0.000 19.961 - 24.689 pp m Ureaplasma urealyticum Not Detected 19.961 - 24.689 pp m Reason For Referral Reason SCHEDULED 07/05 Uri nary frequency, urgency, pelvic floor spasms, bladder spasms Diagnosis 1 Urine frequency (R35 .0) Referral Organization [facility] Referring Provider First Name Mercy Referring Provider Last Name Maria Luz Referring Provider Speciality [facility] Referred Provider [facility] [place] . Referred Provider Specialty Urology Referral Priority Routine Medications Medication SIG (Take, Route, Fr equency, Duration) Notes Start Date End Date Status Vilazodone HCl 20 MG 1 tablet in morning Oral Once a day; Duration: 14 days Active Suboxone 8-2 MG 1 film under the ton gordy and allow to dissolve Sublingual Once a day Active Propranolol HCl 10 MG TAKE 1 TABLET BY M OUTH EVERY 12 HOURS ON AN EMPTY STOMACH; Duration: 30 Active Gabapentin 300 MG 1 capsule Orally thr ee times a day; Duration: 30 days 03/23/2024 Active clonazePAM 0.5 MG 1 tablet Orally Thre e times a day Active Social History Tobacco Use: Social History Observation Description Date Details (start date - stop date) Current Smoker NA - NA AUDIT-C (Standard) Question Answer Notes Did you have a drink containing alcohol in the p ast year? No Points 0 Interpretation Negative Tobacco Control (Standard) Question Answer Notes Tobacco use: Current smoker How often do you smoke cigarettes? Every day Problems Problem Type SNOMED Code ICD Code Onset Dates Problem Status W/U Status Risk Notes Problem Tobacco user (831576277) Nicotine dependence, unspecified, uncomplicated (F17.200) Active confirmed Problem Diplopia (37701285) Diplopia (H53.2) Active confirmed Problem Essential hypertension (02272985) Essential (primary) hypertension (I10) Active confirmed Problem Excessive thirst (55224511) Polydipsia (R63.1) Active confirmed Problem Fatigue (82261469) Other fatigue (R53.83) Active confirmed Problem Fatigue (01628453) Fatigue, unspecified type (R53.83) Active confirmed Problem Dry eyes (213234656) Dry eyes (H04.123) Active confirmed Problem Screening for cardiovascular system disease (982237552) Screening for cardiovascular condition (Z13.6) Active confirmed Problem Daytime somnolence (697992590833) Excessive daytime sleepiness (G47.19) Active confirmed Problem Tonsil stone (4453597) Tonsil stone (J35.8) Active confirmed Problem Psychosexual dysfunction associated with inhibited sexual excitement (945176890022789) 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) Active confirmed Vital Signs Heart Rate 72 /min 07/18/2024 Temperature 98.1 degrees Fahrenheit 07/18/2024 Respiratory Rate 20 /min 07/18/2024 Blood pressure diastolic 71 mm Hg 07/18/2024 Oximetry 96 % 07/18/2024 Height 65 in 07/18/2024 Blood pressure systolic 111 mm Hg 07/18/2024 Weight 165.9 lbs 07/18/2024 BMI 27.6 kg/m2 07/18/2024 Encounters Encounter Location Date Provider Diagnosis [facility] [address] [place] [address] 02/28/2024 [facility] [address] [place] [address] 03/03/2024 [place] [address] [place] [address] 03/05/2024 [facility] [address] [place] [address] 03/13/2024 [facility] [address] [place] [address] 03/28/2024 [facility] [address] [place] [address] 03/29/[address] [place] [address] [place] [address] 04/26/2024 [place] [address] [place] [address] 04/27/2024 [facility] Persistent genital arousal disorder F52.22 and Essential (primary) hypertension I10 [facility] [address] [place] [address] 05/24/2024 [facility] Persistent genital arousal disorder F52.22 [place] [address] [place] [address] 05/25/2024 [facility] [address] [place] [address] 05/26/2024 [facility] Essential (primary) hypertension I10 [facility] [address] [place] [address] 06/30/2024 Mercy Braga [facility] [address] [place] [address] 07/20[facility] [address] [place] [address] 08/14/2024 Mercy Braga [facility] [address] [place] [address] 08/22/2024 Mercy Maria Luz Persistent genital arousal disorder F52.22 and Essential (primary) hypertension I10 [facility] [address] [place] [address] 03/01/2024 Yumi Bentley Screening for STD (sexually transmitted disease) Z11.3 and Essential (primary) hypertension I10 [place] [address] [place] [address] 07/18/2024 Mercy Braga Persistent genital arousal disorder F52.22 ; Tonsillitis J03.90 ; Essential (primary) hypertension I10 and Sore throat J02.9 [facility] [address] [place] [address] 03/23/2024 Yumi Bentley Persistent genital arousal disorder F52.22 [facility] [address] [place] [address] 03/29/2024 Yumi Bentley Persistent genital arousal disorder F52.22 [facility] [address] [place] [address] 04/26/2024 Yumi Bentley Persistent genital arousal disorder F52.22 ; Tonsil stone J35.8 and Nicotine dependence, unspecified, uncomplicated F17.[address] [address] 06/21/2024 Mercy Maria Luz Persistent genital arousal disorder F52.22 ; Urine frequency R35.0 ; Essential (primary) hypertension I10 ; Elevated glucose R73.09 and Fatigue, unspecified type R53.83 Assessments Encounter Date Diagnosis (ICD Code) Assessment Notes Treatment Notes Treatment Clinical Notes Section Notes 03/23/2024 Persistent genital arousal disorder (ICD-10 - F52.22) OK to increase gabapentin to 300mg TID, did let patient know that pharmacy may not be able to fill early due to previous prescription length. OARRS report reviewed. Patient history consistent with prescribing. Refills provided today. Will send 3 day supply as patient is scheduled with OB on Wednesday. 03/29/2024 Persistent genital arousal disorder (ICD-10 - F52.22) I had the pt sign a substance agreement contract with me and counseled pt on not distributing or abusing gabapentin. Gabapentin is not scheduled as a controlled substance, indicating little potential for abuse and addiction. However, gabapentin shares characteristics of medications associated with misuse and addiction, in that it produces a withdrawal syndrome and certain psychoactive effects so agreement signed by pt and scanned into chart today. OARRS report reviewed. Patient history consistent with prescribing. Refills provided today, 30 day supply. 04/26/2024 Tonsil stone (ICD-10 - J35.8) Recommended regular salt water gargles to help stone removal. No active infection on exam today. Reviewed red flag symptoms with patient, parameters to RTC. Verbalized understanding. 04/26/2024 Persistent genital arousal disorder (ICD-10 - F52.22) Will contact PMHNP regarding increasing to QID. Will keep at current dose until we are able to reach PMHNP. Patient verbalized understanding. OARRS report reviewed. Patient history consistent with prescribing. 04/27/2024 Persistent genital arousal disorder (ICD-10 - F52.22) 05/24/2024 Persistent genital arousal disorder (ICD-10 - F52.22) 05/26/2024 Essential (primary) hypertension (ICD-10 - I10) 03/01/2024 Essential (primary) hypertension (ICD-10 - I10) BP is above goal, patient meets criteria for hypertension. At this time, we will start patient on propranolol 10mg BID. Patient would like to start at low dose due to concerns of possible side effects. Discussed adverse effects of this medication and red flags/when to seek emergency care. Pt will continue to follow DASH diet and increase physical activity as tolerated. Encouraged to monitor BP at home, keep a log, if >180/90 RTO, if >200/100 with PATRICIO, visual changes, NV, chest pain or pressure go to the ER. Pt verbalized understanding. 03/01/2024 Screening for STD (sexually transmitted disease) (ICD-10 - Z11.3) Will get [employer] STD testing today. Patient should abstain from sex until results are back. Discussed that syphilis and HIV testing would need to be done via blood test rather than urine, patient declined today. Will contact patient with results. 06/21/2024 Urine frequency (ICD-10 - R35.0) Hgb A1C 5% UA without abnormalities. Patient requesting urology referral and renal lab studies. All questions and concerns addressed. Follow up in 3 months. 06/21/2024 Persistent genital arousal disorder (ICD-10 - F52.22) 07/18/2024 Tonsillitis (ICD-10 - J03.90) Strep test is negative. WIll treat for tonsilitis wit Augmentin. Instructed patient to take antibiotic until gone. Salt water gargles. Increase fluids and rest. All questions and concerns addressed. Follow up PRN 07/18/2024 Persistent genital arousal disorder (ICD-10 - F52.22) 08/22/2024 Persistent genital arousal disorder (ICD-10 - F52.22) 08/22/2024 Essential (primary) hypertension (ICD-10 - I10) 07/18/2024 Essential (primary) hypertension (ICD-10 - I10) 06/21/2024 Essential (primary) hypertension (ICD-10 - I10) 04/27/2024 Essential (primary) hypertension (ICD-10 - I10) 04/26/2024 Nicotine dependence, unspecified, uncomplicated (ICD-10 - F17.200) 07/18/2024 Sore throat (ICD-10 - J02.9) 06/21/2024 Elevated glucose (ICD-10 - R73.09) 06/21/2024 Fatigue, unspecified type (ICD-10 - R53.83) 06/21/2024 Other Body Mass Index : Care Instructions material was published, Body Mass Index: Care Instructions material was printed 07/18/2024 Other Body Mass Index : Care Instructions material was published, Body Mass Index: Care Instructions material was printed Plan Of Treatment Pending Test Test Name Order Date Hemoglobin A1c 06/21/2024 Urinalysis automated 06/21/2024 Strep Test Quickview 07/18/2024 Next Appt Details Provider Name:Mercy kee, 08/24/2024 02:45:00 PM, [address] [place], [address], Insurance Providers Payer Name Payer Address Payer Phone Subscriber Number Group Number Insured Name Patient Relationship to Insured Coverage Start Date Coverage End Date [employer] [place] Medicaid [address] [place] [address] [id number] SAMARA TRIANA Self - patient is the insured 3 [employer] [facility] [address] [place] [address] [phone] [id number] PADILLASAMARA ABARCA Self - patient is the insured 3 [employer] termed [address] [place] [address] [id number] SAMARA TRIANA Self - patient is the insured 0 3 zMEDICAID [facility] after [employer] erm[employer] [address] [place] [address] [id number] SAMARA TRIANA Self - patient is the insured 0 3 Medical (General) History Medical History History ICD Code Anxiety/depression Addiction Hypertension Persistent Genital Arousal Disorder Surgical History Surgery Date(Month/Year) Fallopian tube removed - tubal Child bilateral eye
--- OUTSIDE RECORDS SUMMARY | 2024-08-24 09:23 | XMS_ITS | Clinical Summary ---
Author Organization [facility] Address [address] [place] [address] Care Team Providers Care Analyst Competitive Intelligence Name Role Phone Carlos Whitley MD Primary Care Provider [phone] Allergies Active Allergy Reactions Criticality Noted Date Comments Cephalexin Rash Medium 07/26/2024 Medications clonazePAM (KlonoPIN) 0.1 mg/mL solution Activ e Buprenorphine HCl-Naloxone HCl (Suboxone) 8-2 MG SL film 1 (one) time each day at the same time Active gabapentin (Neurontin) 300 MG capsule 1 capsule every 8 (eight) hours 5 Active propranolol (Inderal) 10 MG tablet every 12 (twelve) hours 5 Active vilazodone (Viibryd) 20 MG tablet 5 Active norethindrone-e thinyl estradiol (Courtney 03/13) 1-20 MG-MCG tabletIndicatio ns:Uses control Take 1 tablet by mouth Daily for 28 days 28 tablet 12 5 09/21/19 25 Active oseltamivir (Tamiflu) 75 MG capsuleIndicati ons:Influenza A 1 capsule po bid x 5 days 10 capsule 3 08/17/19 25 Discontinu ed(Other) DULoxetine (Cymbalta) [address] capsule 5 08/17/19 25 Discontinu ed(Other) venlafaxine XR (Effexor XR) 75 MG 24 hr capsule 4 08/17/19 25 Discontinu ed(Other) predniSONE (Deltasone) 10 MG tablet 5 06/25/20 25 Discontinu ed(Other) hydrOXYzine pamoate (Vistaril) 25 MG capsule 5 08/17/19 Discontinu ed(Other) norethindrone-e thinyl estradiol (Courtney FE 03/13) 1-20 MG-MCG tablet Take 1 tablet by mouth Daily 5 08/24/19 Discontinu ed(Reorder ) Active Problems No known active problems Encounters Date Type Department Care Team Description 08/23/2024 [address]ill [facility] [address] [place] [address] Jillian Flowers LPN Uses control 08/16/2024 3:30 PM EDT Procedure Visit [facility] [address] [place] [address] Bandar Williamson DO LGSIL on Pap smear of cervix 08/16/2024 External Result Encounter [facility] External Department Unsolicited Bandar Williamson DO 07/31/2024 1:00 PM EDT Office Visit [facility] [address] [place] [address] Juan Carlos Elkins DPM Tailor's bunion of right foot (Primary Dx); Right foot pain; Nail dystrophy; Callus 07/31/2024 Bamboo flowsheet [facility] [address] [place] [id number] Juan Carlos Elkins DPM 07/31/2024 Travel 07/24/2024 10:20 AM EDT Office Visit [facility] [address] [place] [address] Bandar Williamson DO Encounter for consultation; LGSIL of cervix of undetermined significance 07/24/2024 Bamboo flowsheet [facility] [address] [place] [address] Bandar Williamson DO 06/20/2024 Telephone [facility] [place] [address] [place] [address] Nicole Valenzuela MA from Last 3 Months Family History Medical History Relation Name Comments No Known Problems Brother Bipolar disorder Father Depression Father Schizophrenia Father Bipolar disorder Father's Brother Schizophrenia Father's Brother Cleft lip Maternal Cousin Cleft palate Maternal Cousin Seizures Mother's Sister Hypertension Paternal Grandfather Hypertension Paternal Grandmother No Known Problems Sister Relation Name Status Comments Brother Daughter Alive Father Alive Father's Brother Maternal Cousin Mother Alive Mother's Sister Paternal Grandfather Paternal Grandmother Sister Social History Tobacco Use Types Packs/Day Years Used Date Smoking Tobacco: Every Day Cigarettes Tobacco Cessation:Ready to Q uit: Not Asked; Counseling Given: Not Answered Comments:Patient smokes 6-10 cigarettes/day after 6-30 minutes [...] on file Sexual Orientation Not on file Last Filed Vital Signs Vital Sign Reading Time Taken Comments Blood Pressure 116/70 08/16/2024 3:57 PM EDT Pulse 86 01/02/2023 2:09 PM EST Temperature 36.8 C (98.2 F) 01/02/2023 2:09 PM EST Respiratory Rate 18 01/02/2023 2:09 PM EST Oxygen Saturation 98% 01/02/2023 2:09 PM EST Inhaled Oxygen Concentration - - Weight 74.4 kg (164 lb) 08/16/2024 3:57 PM EDT Height 165.1 cm (5' 5 ) 06/29/2022 12:00 PM EDT Body Mass Index 27.29 06/29/2022 12:00 PM EDT Plan of Treatment Upcoming Encounters Date Type Department Care Team (Late st Contact Info) Description 02/27/2025 9:00 AM EST Procedure Visit [facility] [address] [facility] [place] [address] Bandar Williamson, DO [address] [place] [address] [place] [address] Procedures Procedure Name Priority Date/Time Associated Diagnosis Comments POCT , URINE Routine 08/16/2024 4:05 PM EDT LGSIL on Pap smear of cervix PATHOLOGY REQUEST FOR [facility] Routine 08/16/2024 12:00 AM EDT from Last 3 Months Results * POC , urine (08/16/2024 4:05 PM EDT) Preg Test, Ur Negative Negative Urine 08/16/2024 4:05 PM EDT Bandar Teri DO POINT OF CARE TEST ENTER/EDIT OR DERABLES Final Result * PATHOLOGY REQUEST FOR [facility] (08/16/2024 12:00 AM EDT) PATHOLOGY REQUEST FOR [facility] 08/23/2024 2:46 PM EDT [facility] Comment:See report. Scanned copy available in EMR. Other Topography unknown / Unknown 08/16/2024 08/17/2024 1:18 PM EDT Narrative [facility] - 08/23/2024 2:46 PM EDT ECC Bandar Teri DO LAB BLOOD ORDERABLES Final Resul t [facility] [address] [place] [address], [facility] [address] [place] [address] from Last 3 Months Insurance [employer] Care Teams Analyst Competitive Intelligence Relationship Specialty Start Date End Date Carlos Whitley MD [address] [place] [address] PCP - General Pediatrics 03/27/24
--- OUTSIDE RECORDS SUMMARY | 2024-08-24 09:23 | XMS_ITS | Encounter Summary ---
Author Organization [facility] Address [address] [place] [address] Care Team Providers Care Consumer Marketing Analyst Name Role Phone Kasi Powers (Historical) Primary Care Provider Enma Jeffrey MD Unavailable [phone] Source Comments In the event this information is protected by the Federal Confidentiality of Alcohol and Drug AbusePatient Records regulations: The Federal rules restrict any use of the information to criminally investigate or prosecute any alcohol or drug abuse patient.[facility] Encounter Details Date Type Department Care Team ([facility] Contact Info) Description 02/20/2021 Get Medical Advice Obstetrics/Gynecolog y [address] [place] [address] [place] [address] [place] [address] My appointment coming up Social History Tobacco Use Types Packs/Day Years [...] place to sleep or slept in a half-way (including now)? No 02/03/2021 Area Deprivation Index Answer Date Jatinder rded National Score (1-100), lower number is lower ri sk Not on file 07/24/2020 State Score (1-10), lower number is lower risk N ot on file 07/24/2020 Data from: https://www.neighborhoodatlas.medicine.[facility].edu/. Last address used for calculation Not [...] on filedocumented in this encounter Care Teams Consumer Marketing Analyst Relationship Specialty Start Date End Date JuneKasi (Historical) PCP - General 07/21/11 Enma Jeffrey MD [address] [facility] [address] [place] [address] Referring Apparel Patternmaker 03/31/24 documented as of this encounter
--- OUTSIDE RECORDS SUMMARY | 2024-08-24 09:23 | XMS_ITS | Encounter Summary ---
Author Organization [facility] Address [address] [place] [address] Care Team Providers Care Seed Laboratory Assistant Name Role Phone Carlos Whitley MD Primary Care Provider [phone] Reason for Visit * Reason Onset Date Comments Med Refill 08/23/2024 Encounter Details Date Type Department Care Team ([facility] Contact Info) Description 08/23/2024 Refill [facility] [address] [place] [address] Jillian Flowers LPN [address] [place] [address] Uses control Social History Tobacco Use Types Packs/Day Years [...] on file documented as of this encounter Miscellaneous Notes * Telephone Encounter - Jillian Flowers LPN - 08/23/2024 9:53 AM EDT my control does not have a refill and I have been waiting for the pharmacy to text me about when I could pick it up and they never did. So I am like, I have not taken my Control in like, 2 days. So I need that my control filled as soon as possible. Patient call was returned and she was advised script could be sent need to verify pharmacy and she confirmed Adiel Davey advised script was sent. documented in this encounter Plan of Treatment Upcoming Encounters Date Type Department Care Team (Late st Contact Info) Description 02/27/2025 9:00 AM EST Procedure Visit [facility] [address] [facility] [place] [place] [address] Bandar Williamson, DO [address] [place] [address] documented as of this encounter Visit Diagnoses Diagnosis Uses control documented in this encounter Care Teams Seed Laboratory Assistant Relationship Specialty Start Date End Date Carlos Whitley MD [address] [place] [address] PCP - General Pediatrics 03/27/24 documented as of this encounter
--- OUTSIDE RECORDS SUMMARY | 2024-08-24 09:23 | XMS_ITS | Encounter Summary ---
Author Organization [facility] Address [address] [place] [address] Care Team Providers Care Micro Photographer Name Role Phone Kasi Powers (Historical) Primary Care Provider Enma Jeffrey MD Unavailable [phone] Source Comments In the event this information is protected by the Federal Confidentiality of Alcohol and Drug AbusePatient Records regulations: The Federal rules restrict any use of the information to criminally investigate or prosecute any alcohol or drug abuse patient.[facility] Encounter Details Date Type Department Care Team ([facility] Contact Info) Description 02/03/2021 Patient Msg Obstetrics/Gynecology [address] [place] [address] Provider, [facility] Social History [...] place to sleep or slept in a senior living (including now)? No 02/03/2021 Area Deprivation Index Answer Date Jatinder rded National Score (1-100), lower number is lower ri sk Not on file 07/24/2020 State Score (1-10), lower number is lower risk N ot on file 07/24/2020 Data from: https://www.neighborhoodatlas.medicine.[facility].edu/. Last address used for calculation [...] on filedocumented in this encounter Care Teams Micro Photographer Relationship Specialty Start Date End Date June, Kasi Castle (Historical) PCP - General 07/21/11 Enma Jeffrey MD [address] [place] [address] Referring Relay Tester Helper 03/31/24 documented as of this encounter
--- OUTSIDE RECORDS SUMMARY | 2024-08-24 09:23 | XMS_ITS | Encounter Summary ---
Author Organization [facility] Address [address] [place] [address] Phone Care Team Providers Care Telesales Manager Name Role Phone Enma Jeffrey MD Primary Care Provider [phone] Encounter Details Date Type Department Care Team ([facility] Contact Info) Description 03/12/2023 [address]anned Document [facility] [address] [place] [id number] Scanning, Generic Provider Social History Tobacco Use Types Packs/Day Years [...] Upcoming Encounters Date Type Department Care Team ([facility] Contact Info) Description 08/30/2024 11:30 AM EDT Telemedicine [facility] [address] [place] [phone] Gloria Hamilton, ELECTRONIC WIRER-REPAIR SERVICE DISPATCHER, ELECTRONIC WIRER-WORK FROM HOME [address] Department [place] [address] documented as of this encounter Visit Diagnoses Not on filedocumented in this encounter Care Teams Telesales Manager Relationship Specialty Start Date End Date Enma Jeffrey MD [address] as of 11/15/2015 [place] [phone] PCP - General 10/05/14 documented as of this encounter
== END 2024-08-16 00:02 | disposition home or self-care (01) ==
LOC: LAB 00:01
PROVIDERS: Visit Provider Obstetrics & Gynecology
DX: R87.612 Low grade squamous intraepithelial lesion on cytologic smear of cervix (LGSIL) (principal)

== ENCOUNTER 2024-09-21 09:12 | Outpatient (OUT) | payer OTHER, SELFPAY ==
--- OUTSIDE RECORDS SUMMARY | 2018-08-30 10:13 | XMS_ITS | Continuity of Care Document ---
Author Organization [facility] Address [address] [place] [address] Phone Care Team Providers Care Extrusion Press Operator Name Role Phone Clifford Karen CHAPPELL Unavailable Unavaila ble Advance Directives Directive Yes / No Effective Date File Name No Information Encounters Encounter Description Practice Location Reason(s) For Visit Diagnoses Date Provider Providers Copied on Encounter [facility], [address] [place] [address], [id number], [place] tel:[phone] [facility] No Information Clifford [place] Jones. [address] [place], [place], [id number], [place]. tel:[phone] Family History Family Member Type Diagnosis Age At Onset No Information Payers Payer name Insurance type Covered libertarian ID Authoriza tion(s) No Information Social History Type Description Quantity Date Captured Comments Sex Female Smoking Status No Information Sexual Orientation Straight or heterosexual Gender Identity Female Chief Complaint And Reason For Visit No Information Reason For Referral Reason For Referral No Information History Of Present Illness Encounter Date Complaint History Of Prese nt Illness No Information Functional Status Date Functional Assessmen t No Information Instructions Date Instruction Additional Infor mation No Information Assessments Type Assessment Date No Information Patient Care Teams Name Effective Dates (start - stop) Status Members No Information
--- OUTSIDE RECORDS SUMMARY | 2024-08-18 06:45 | XMS_ITS ---
Author Organization [facility] Address [address] [place] [address] Care Team Providers Care Hand Reamer Name Role Phone Mercy Braga Primary Care Provider [phone] REASON FOR VISIT THROAT PAIN-WANTING ENT REFERRAL Encounters Encounter Location Date Provider Diagnosis [facility] [address] [place] [address] 08/18/2024 Mercy Braga Plan Of Treatment No Information Progress Notes * KAMILAHCARLOSAGUSTINDOB:[birth year] (34 yo F)Acc No.[id number]:08/18/2024 Progress Notes Patient: SAMARA VERMA Provider: ELAINE Garzon :1990 A ge:34 Y S ex:Female Date:08/18/2024 Address:[address] [place], [place] [id number] Subjective: * Chief Complaints: * 1 . THROAT PAIN-WANTING ENT REFERRAL. * Medical History: Objective: * Vitals: Assessment: Plan: * Treatment: * Images: * Electronic signature of Saige Braga CNP on 09/21/2024 at 09:16 AM EDT Sign off status: Pending * Provider: ELAINE Garzon Date: 0 08/18/2024 Generated for Printi george/Hazel/eTransmitting on: 09/21/2024 09:16 AM EDT
--- OUTSIDE RECORDS SUMMARY | 2024-09-21 09:16 | XMS_ITS | Encounter Summary ---
Author Organization [facility] Address [address] [place] [address] Care Team Providers Care Forklift Operator Name Role Phone Carlos Whitley MD Primary Care Provider [phone] Encounter Details Date Type Department Care Team (Late st Contact Info) Description 08/16/2024 Abstract [facility] [address] [place] [address] Bandar Williamson DO [address] [place], [facility] Social History Tobacco Use Types Packs/Day Years [...] Care Team (Late st Contact Info) Description 10/12/2024 10:30 AM EDT Office Visit [facility] [address] [place] [address] [place] [address] Riddhi Trevizo PA [address] [facility] [address] [place], [facility]11 02/27/2025 9:00 AM EST Procedure Visit [facility] [address] [facility] [place] [address] Bandar Williamson DO [address] [facility] [place] [address] documented as of this encounter Visit Diagnoses Not on filedocumented in this encounter Care Teams Forklift Operator Relationship Specialty Start Date End Date Carlos Whitley MD [address] [place] [address] PCP - General Pediatrics 03/27/24 documented as of this encounter
--- OUTSIDE RECORDS SUMMARY | 2024-09-21 09:16 | XMS_ITS | Clinical Summary ---
Author Organization [facility] Address [address] [place] [address] Care Team Providers Care Burrer Marker Axle Name Role Phone PriyaKasi (Historical) Primary Care Provider Enma Jeffrey MD Unavailable [phone] Allergies Active Allergy Reactions Criticality Noted [...] place to sleep or slept in a mcc (including now)? No 02/03/2021 Area Deprivation Index Answer Date Jatinder rded National Score (1-100), lower number is lower ri sk 86 04/03/2024 State Score (1-10), lower number is lower risk 8 04/03/2024 Data from: https://www.neighborhoodatlas.medicine.[facility].edu/. Last address used for calculation [address] 04/03/2024 Comments No Sex and Gender [...] Cancer Screening 01/29/20242020, 01/28/2021, 07/27/2011 Influenza Vaccine (#1) 2024 11/19/2014 DTaP,Tdap,Td Vaccine (3 - Td or Tdap) [...] FLUID CERVICAL SCREENING (01/28/2021 2:26 PM EST) Glaze Grinder ADDITIONAL PROCEDURES PRESENT ---Abnormal Pap Test - Epithelial Cell Abnormality--- Specimen originated from [facility] Specimen #: [id number] Submitting Physician: RIDDHI BUCKNER M.D. SPECIMEN SUBMITTED [...] by my colleague, Dr. Mercy Leyva (Cytology/Gynecolo [facility] Pathology), who concurs. This specimen has been analyzed by the ThinPrep Imaging System, an automated imaging and review system, which assists the laboratory in evaluating cells on ThinPrep Pap tests. Following automated imaging, selected prabhakar from every slide are reviewed by a senior gis analyst. Seda Paez M.D. (Electronic Signature) ADDITIONAL PROCEDURE(S) HUMAN PAPILLOMA VIRUS Date Ordered: 01/29/2021 Date Reported: 01/30/2021 Procedure Results and Interpretation Negative for HPV DNA high risk type 16 by PCR. Negative for HPV DNA high risk type 18 by PCR. Negative for HPV DNA high risk types: 31,33,35,39,45,51, 52,56,58,59,66,68 by PCR. This test was developed and its performance characteristics determined by [facility]'s [facility]ology and [facility] [place] ([facility]). It has not been cleared or approved by the FDA. [facility] is regulated under CLIA as qualified to perform high-complexity testing. This test is used for clinical purposes. It should not be regarded as investigational or for research. CLINICAL DATA ROUTINE EXAM, HPV Testing: Yes, automatic HPV patients over 30 Date of Last Menstrual Period: 11/19/2020( ) STAINS A: CERVICAL, SCREENING, FLUID THIN PREP CELL OPERATOR Date of Report: 02/04/2021 Date of Procedure: 01/28/2021 Date of Receipt: 01/29/2021 Submitted by: RIDDHI BUCKNER M.D. Location: [facility] Diagnostic interpretation performed at [facility], [address] [place] [address]. [place] Number: [id number] The Pap Smear is a screening test for cervical cancer. False negative results occur with all screening tests, emphasizing the need for rescreening at recommended intervals, and clinical correlation.(A) COPATHPLUS Cervix SPECIMEN FROM CERVIX OR VAGINA / Unknown 01/28/2021 2:26 PM EST 01/29/2021 12:19 PM EST us Riddhi Buckner MD CYTOLOGY Edited Result - Final COPATHPLUS [address] [place] [address] from Last 3 Months or Most Recently Relevant to Health Maintenance Insurance [employer] Member Subscriber Plan / Payer (Ef fective 2022-Present) Name:Gloria Cunningham Relation to Subscriber:Self Name:Gloria Cunningham Payer ID:[id number] (NAIC) Group ID:[id number] Type:Medicaid Address: [place] [id number] Care Teams Burrer Marker Axle Relationship Specialty Start Date End Date JuneKasi (Historical) PCP - General 07/21/11 Enma Jeffrey MD [address] [place] [address] Referring Personal Property Assessor 03/31/24
--- OUTSIDE RECORDS SUMMARY | 2024-09-21 09:16 | XMS_ITS | Patient Health Record ---
Author Organization [facility] Servic es Address [address] [place] [address] Care Team Providers Care Inventory Worker Name Role Phone Mercy Braga Primary Care Provider Yumi Nieves Unavailable [phone] Norma Land Unavailable [phone] Allergies No Known Allergies Results Component Value Reference Range Notes Strep Test Quickview (Not ye t reviewed by provider) Interpretation: Performing Lab: Notes/Report: Result negative GNURI - Complicated Genitour inary Infection (HTRx) [...] testing is not performed at this lab. Sales And Management Trainee to CFU/mL equivalent thresholds were established based on studies using known CFU/mL urine specimens performed at [facility] in [place], [place]. Testing performed by [facility] ([place] [address]; CLIA# [id number]; Welt Insole Channeler Anita Murillo, PhD, [facility])). This test was developed, and its performance characteristics determined by [facility]. It has not been cleared or approved [...] Mobiluncus spp Detected 19.961 - 24.689 ppm Tracy albicans, parapsilosis, tropicalis 0.000 19.961 - 30.770 ppm Tracy albicans, parapsilosis, tropicalis Not Detected 19.961 - 30.770 ppm Tracy glabrata (Nakaseomyces glabratus) 0.000 23.000 - 32.138 ppm Tracy glabrata (Nakaseomyces glabratus) Not Detected 23.000 - 32.138 ppm Tracy krusei (Pichia kudriavzevii) 0.000 23.000 - 32.271 ppm Tracy krusei (Pichia kudriavzevii) Not Detected 23.000 - 32.271 ppm Chlamydia [...] Not Detected 19.961 - 24.689 pp m Dipstick and Microscopic Reviewed date:03/12/2024 05:10:22 AM Interpretation: Performing Lab:, [facility], [address] [place] [address] , [facility] Notes/Report: Name Collection Type:: Clean-Voided Midstream Color,Urine Yellow Yellow Appearance,Urine Cloudy Clear Specificy Temperance,Urine 1.029 1.001-1.030 pH,Urine 6.0 5.0-9.0 Leukocyte Esterase,Urine 3+ Negative Nitrite,Urine Negative Negative Protein,Urine 20 Negative mg/dL Glucose,Urine (UA) Normal Normal Ketones,Urine Trace Negative Urobilinogen,Urine Normal Normal Bilirubin,Urine Negative Negative Occult Blood,Urine Negative Negative RBC,Urine 1-2 0-4 [HPF] WBC,Urine 5-9 0-4 [HPF] Squamous Epithelial Cell,Urine 20-49 0-2 [HPF] Bacteria,Urine 1+ None Seen Hyaline Casts,Urine 0-8 0-8 [LPF] Mucus,Urine 2+ HCG,Urine Reviewed date:03/12/2024 05:10:22 AM Interpretation: Performing Lab: Notes/Report: Name Collection Type:: Clean-Voided Midstream HCG Qualitative,Urine Negative Urine Culture Reviewed date:03/14/2024 08:28:39 PM Interpretation: Performing Lab:, [facility], [address], [place] Notes/Report: Complete Blood Count Auto Di ff Reviewed date:03/12/2024 05:10:22 AM Interpretation: Performing Lab:, [facility], [address], [place] Notes/Report: For adults in ED, MDW > [...] Reviewed date:03/12/2024 05:10:22 AM Interpretation: Performing Lab:, [facility], [address] Notes/Report: Total Protein 7.6 6.4-8.9 g/dL Albumin [...] 6.0-15.0 meq/L Creatinine Clr Calc Pharmacy 78.86 Hemoglobin A1c (Not yet revi ewed by provider) Interpretation: Performing Lab: Notes/Report: Hemoglobin A1c 5.0 5 - 7.9 % Urinalysis automated (Not ye t reviewed by provider) Interpretation: Performing Lab: Notes/Report: Urine-Color yellow Appearance clear Specific Temperance 1.015 pH 6.0 Glucose neg Protein neg Occult Blood neg Bilirubin neg Urobilinogen,Semi-Qn 0.2 mg/dl Nitrite, Urine neg Ketones neg WBC Esterase neg Comprehensive Metabolic Pane l Reviewed date:08/23/2024 09:30:27 AM Interpretation: Performing Lab:, [facility], [address] Notes/Report: Reason for Exam Persistent genital arousal [...] Stim Hormone w/Rflx 2.08 0.45-5.33 u[i U]/mL Reason For Referral Reason SCHEDULED 07/05 Uri nary frequency, urgency, pelvic floor spasms, bladder spasms Diagnosis 1 Urine frequency (R35 .0) Referral Organization [facility] Referring Provider First Name Mercy Referring Provider Last Name Maria Luz Referring Provider Speciality Family Med liv Referred Provider [facility] [place]., . Referred Provider Specialty Urology Referral Priority Routine Reason *FAXED 08/28 Tosil e xudates tonsil stones change in voice frequent sore throats. Diagnosis 1 Exudative tonsilliti s (J03.90) Referral Organization [facility] Referring Provider First Name Mercy Referring Provider Last Name Maria Luz Referring Provider Speciality Family Med liv Referred Provider JONATHAN WAYNE Referred Provider Specialty Otolaryngolo gy Referral Priority Routine Medications Medication SIG (Take, Route, Fr equency, Duration) Notes Start Date End Date Status Propranolol HCl 10 MG TAKE 1 TABLET BY M OUTH EVERY 12 HOURS ON AN EMPTY STOMACH; Duration: 30 Active Gabapentin 300 MG 1 capsule Orally thr ee times a day; Duration: 30 days 03/23/2024 Active Vilazodone HCl 20 MG 1 tablet in morning Oral Once a day; Duration: 14 days Active Suboxone 8-2 MG 1 film under the ton gordy and allow to dissolve Sublingual Once a day Active clonazePAM 0.5 MG 1 tablet Orally Thre e times a day Active Social History AUDIT-C (Standard) Question Answer Notes Did you have a drink containing alcohol in the p ast year? No Points 0 Interpretation Negative Problems Problem Type SNOMED Code ICD Code Onset Dates Problem Status W/U Status Risk Notes Problem Tobacco user (086274825) Nicotine dependence, unspecified, uncomplicated (F17.200) Active confirmed Problem Diplopia (63702375) Diplopia (H53.2) Active confirmed Problem Essential hypertension (42973724) Essential (primary) hypertension (I10) Active confirmed Problem Excessive thirst (58022290) Polydipsia (R63.1) Active confirmed Problem Fatigue (55277470) Other fatigue (R53.83) Active confirmed Problem Fatigue (91781887) Fatigue, unspecified type (R53.83) Active confirmed Problem Dry eyes (527899355) Dry eyes (H04.123) Active confirmed Problem Screening for cardiovascular system disease (300546331) Screening for cardiovascular condition (Z13.6) Active confirmed Problem Daytime somnolence (702731822104) Excessive daytime sleepiness (G47.19) Active confirmed Problem Tonsil stone (4074636) Tonsil stone (J35.8) Active confirmed Problem Psychosexual dysfunction associated with inhibited sexual excitement (791123481342556) 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 [address] [place] [address] 02/28/2024 [facility] [address] [place] [address] 03/03/2024 [facility] [address] [place] [address] 03/05/2024 [facility] [address] [place] [address] 03/13/2024 [facility] [address] [place] [address] 03/28/2024 [facility] [address] [place] [address] 03/29[facility]20[facility] [address] [place] [address] 04/26/20[facility] [address] [place] [address] 04/27/2024 Yumi albertoLeidyrray Persistent genital arousal disorder F52.22 and Essential (primary) hypertension I10 [facility] [address] [place] [address] 05/24/2024 Yumi albertoLeidyrray Persistent genital arousal disorder F52.22 [facility] [address] [place] [address] [facility] [address] [place] [address] 05/26/2024 Yumi dominguezLeidyrray Essential (primary) hypertension I10 [facility] [address] [place] [address] 06/30/[address] [facility] [address] [place] [address] 07/20/[address] [facility] [address] [place] [address] 08/14/[address] [facility] [address] [place] [address] 08/22/2024 Mercy Braga Persistent genital arousal disorder F52.22 and Essential (primary) hypertension I10 [facility] [address] [place] [address] 03/01/2024 Yumi Nieves Screening for STD (sexually transmitted disease) Z11.3 and Essential (primary) hypertension I10 [address] [address] 07/18/2024 Mercy Braga Persistent genital arousal disorder F52.22 ; Tonsillitis J03.90 ; Essential (primary) hypertension I10 and Sore throat J02.[address] [address] 08/24/2024 Mercy Braga Exudative tonsilliti s J03.90 and Tonsil stone J35.8 [facility] [address] [place] [address] 03/23/2024 Yumi dominguezzzMurray Persistent genital arousal disorder F52.22 [facility] [address] [place] [address] 03/29/2024 Yumi zzzMurray Persistent genital arousal disorder F52.22 [facility] [address] [place] [address] 04/26/2024 Yumi zzzMurray Persistent genital arousal disorder F52.22 ; Tonsil stone J35.8 and Nicotine dependence, unspecified, uncomplicated F17.[address] [address] 06/21/2024 Mercy Braga Persistent genital arousal disorder F52.22 ; Urine [...] transmitted disease) (ICD-10 - Z11.3) Will get [facility] STD testing today. Patient should abstain from [...] Persistent genital arousal disorder (ICD-10 - F52.22) 08/24/2024 Tonsil stone (ICD-10 - J35.8) 08/24/2024 Exudative tonsillitis (ICD-10 - J03.90) Referral to ENT for further evaluation and treatment of chronic sore throat with tonsilar exudates. Patient tearful feels as though her requests have been ignored from previous providers. All questions and concerns addressed. Follow up PRN. 08/22/2024 Essential (primary) hypertension (ICD-10 - I10) [...] Urinalysis automated 06/21/2024 Strep Test Quickview 07/18/2024 Insurance Providers Payer Name Payer Address Payer Phone Subscriber Number Group Number Insured Name Patient Relationship to Insured Coverage Start Date Coverage End Date [facility] [place] Medicaid [address] [place] [address] [id number] SAMARA TRIANA Self - patient is the insured 3 [employer] [facility] [address] [place] [phone] [id number] KAMILAH SAMARA Self - patient is the insured 3 [employer] [address] [place] [address] [id number] KAMILAH SAMARA Self - patient is the insured 0 3 zMEDICAID [employer] after [employer] [address] [place] [address] [id number] KAMILAH SAMARA Self - patient is the insured 0 3 Medical (General) History Medical History History ICD Code Anxiety/depression Addiction Hypertension Persistent Genital Arousal Disorder Surgical History Surgery Date(Month/Year) Fallopian tube removed - tubal Child bilateral eye
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
--- NOTE | 2024-09-21 09:17 | ECG_ITS ---
[facility] Test Date: 2024-09-21 Pat Name: SAMARA TRIANA Department: Room: - Gender: Female Education Sales Consultant: : 1990 Requested By: TYRONE BLACKWELL Order Number: [id number] Reading MD: ORA LOVE M.D. Measurements Intervals Loris Rate: 45 P: 7 NH: 135 QRS: 75 QRSD: 85 T: 54 QT: 413 QTc: 357 Interpretive Statements SINUS BRADYCARDIA Borderline ECG No previous ECG available for comparison Electronically Signed On 09-21-2024 21:01:20 EDT by ORA LOVE M.D.
--- OUTSIDE RECORDS SUMMARY | 2024-09-21 09:17 | XMS_ITS | Encounter Summary ---
Author Organization [facility] Address [address] [place] [address] Care Team Providers Care Licensed Occupational Therapy Assistant Name Role Phone Kasi Powers (Historical) Primary Care Provider Enma Jeffrey MD Unavailable [phone] Source Comments In the event this information is protected by the Federal Confidentiality of Alcohol and Drug AbusePatient Records regulations: The Federal rules restrict any use of the information to criminally investigate or prosecute any alcohol or drug abuse patient.[facility] Encounter Details Date Type Department Care Team ([facility] Contact Info) Description 02/03/2021 Patient Msg Obstetrics/Gynecology [address] [place] [address] Provider, [facility] Social History [...] place to sleep or slept in a longterm (including now)? No 02/03/2021 Area Deprivation Index Answer Date Jatinder rded National Score (1-100), lower number is lower ri sk Not on file 07/24/2020 State Score (1-10), lower number is lower risk N ot on file 07/24/2020 Data from: https://www.neighborhoodatlas.medicine.[facility].edu/. Last address used for calculation Not [...] on filedocumented in this encounter Care Teams Licensed Occupational Therapy Assistant Relationship Specialty Start Date End Date June, Kasi Castle (Historical) PCP - General 07/21/11 Enma Jeffrey MD [address] [place] [phone] Referring Manager Nicu 03/31/24 documented as of this encounter
--- OUTSIDE RECORDS SUMMARY | 2024-09-21 09:17 | XMS_ITS | Encounter Summary ---
Author Organization [facility] Address [address] [place] [address] Phone Care Team Providers Care Assembler Insulator Name Role Phone Enma Jeffrey MD Primary Care Provider [phone] Encounter Details Date Type Department Care Team ([facility] Contact Info) Description 03/12/2023 Scanned Document [facility] [address] [place] [phone] Scanning, Generic Provider Social History Tobacco Use [...] Upcoming Encounters Date Type Department Care Team ([facility] Contact Info) Description 09/28/2024 11:00 AM EDT [facility]icine [facility] [address] [place] [phone] Gloria Hamilton, SUMMER CHILD CAREGIVER-SHAREPOINT NET DEVELOPER, SUMMER CHILD CAREGIVER-RESEARCH LAB ASSISTANT [address] [place] [address] documented as of this encounter Visit Diagnoses Not on filedocumented in this encounter Care Teams Assembler Insulator Relationship Specialty Start Date End Date Enma Jeffrey MD [address] as of 11/15/2015 [place] [address] PCP - General 10/05/14 documented as of this encounter
--- OUTSIDE RECORDS SUMMARY | 2024-09-21 09:17 | XMS_ITS | Clinical Summary ---
Author Organization [facility] Address [address] [place] [address] Care Team Providers Care Manager Relationship Name Role Phone Carlos Whitley MD Primary Care Provider [phone] Allergies Active Allergy Reactions Criticality Noted Date [...] tablet 5 Active norethindrone-e thinyl estradiol (Courtney BHARGAVI 03/13) 1-20 MG-MCG tabletIndicatio ns:Uses control Take 1 tablet by mouth Daily for 28 days 28 tablet 12 5 Active predniSONE (Deltasone) 20 MG tabletIndicatio ns:Arm pain, musculoskeletal , right,Tendiniti s of right forearm Take 3 tabs for 2 days, 2 tabs for 2 days, 1 tab for 2 days, 1/2 tab for 2 days then stop 13 tablet 5 Active desogestrel-eth inyl estradiol (Apri) 0.15-30 MG-MCG tabletIndicatio ns: control counseling Take 1 tablet by mouth Daily for 28 days Take 1 tablet by mouth daily 28 tablet 11 5 08/11/20 25 Active norethindrone-e thinyl estradiol (Courtney FE 03/13) 1-20 MG-MCG tablet Take 1 tablet by mouth Daily 08/24/19 25 Discontinu ed(Reorder ) Active Problems No known active problems Encounters Date Type Department Care Team Description 09/04/2024 11:30 AM EDT Office Visit [facility] [address] [place], [place] [address] [address] Bandar Williamson DO Encounter to discuss procedure; History of abnormal cervical Pap smear; LGSIL on Pap smear of cervix 09/04/2024 Telephone [facility] [address] [place], [place] [address] [address] Zoe Richardson LPN 09/04/2024 [place]amboo [place] [address] Bandar Williamson DO 08/28/2024 11:15 AM EDT Office Visit [facility] [address] [place] [phone] Paulette Bedolla, WAITER Arm pain, musculoskeletal, right (Primary Dx); Tendinitis of right forearm 08/28/2024 Travel 08/24/2024 Telephone [facility] [address] [place] [address] Bandar Williamson DO 08/23/2024 [facility] [place] [place] [address] Jillian Flowers LPN Uses control 08/16/2024 3:30 PM EDT [place] [address] Bandar Williamson DO LGSIL on Pap smear of cervix 08/16/2024 [place] [address] Bandar Williamson DO 08/16/2024 External Result Encounter [facility] External Department Unsolicited Bandar Williamson DO 07/31/2024 1:00 PM EDT Office Visit [facility] [address] [place] [address] Juan Carlos Elkins DPM Tailor's bunion of right foot (Primary Dx); Right foot pain; Nail dystrophy; Callus 07/31/2024 Bamboo flowsheet [facility] [address] [place] [address] Juan Carlos Elkins DPM 07/31/2024 Travel 07/24/2024 10:20 AM EDT Office Visit [facility] [address] [place] [address] Bandar Williamson DO Encounter for consultation; LGSIL of cervix of undetermined significance 07/24/2024 Bamboo flowsheet [facility] [address] [facility] [address] Bandar Williamson DO from Last 3 Months Family History Medical [...] Sign Reading Time Taken Comments Blood Pressure 122/70 09/04/2024 11:43 AM EDT Pulse 69 08/28/2024 11:26 AM EDT Temperature 36.4 C (97.6 F) 08/28/2024 11:26 AM EDT Respiratory Rate 20 08/28/2024 11:26 AM EDT Oxygen Saturation 99% 08/28/2024 11:26 AM EDT Inhaled Oxygen Concentration - - Weight 73.5 kg (162 lb) 09/04/2024 11:43 AM EDT Height 165.1 cm (5' 5 ) 06/29/2022 12:00 PM EDT Body Mass Index 26.96 06/29/2022 12:00 PM EDT Plan of Treatment Upcoming Encounters Date Type Department Care Team (Late st Contact Info) Description 10/12/2024 10:30 AM EDT Office Visit [facility] [address] [place] [address] Riddhi Trevizo PA [address] [place], [place] [phone] 02/27/2025 9:00 AM EST Procedure Visit [facility] [address] [place] [address] Bandar Williamson DO [address] [place], [place] [phone] Procedures Procedure Name Priority Date/Time Associated Diagnosis Comments COLPOSCOPY Routine 08/16/2024 4:12 PM EDT LGSIL on Pap smear of cervix POCT , URINE Routine 08/16/2024 4:05 PM EDT LGSIL on Pap smear of cervix PATHOLOGY REQUEST FOR LAB [facility] Routine 08/16/2024 12:00 AM EDT from Last 3 Months Results * Colposcopy (08/16/2024 4:12 PM EDT) Darshana Tubbs LPN - 08/16/2024 4:12 PM EDT Darshana Castle LPN 08/24/2024 10:33 AM Colposcopy Date/Time: 08/16/2024 4:12 PM Performed by: Bandar Williamson DO Authorized by: Bandar Williamson DO Consent: Consent obtained: Written Consent given by: Patient Indication: Other indication(s): clinical abnormality Pre-procedure: Prep solution(s): acetic acid Procedure: Colposcopy with: endocervical curettage Cervix visibility: fully visualized Post-procedure: Patient tolerance of procedure: Patient tolerated the procedure well with no immediate complications Comments: Colposcopy: Patient is doing well and has no complaints. Pap results have been reviewed with the patient in great detail and patient voiced understanding. Patient presents today for a Colposcopy with ECC. Patient was placed in dorsal lithotomy position with feet in stirrups, a sterile speculum was placed into the vagina and the cervix was visualized. Cervix was cleansed with vinegar. Postprocedural instructions given. All if patients questions answered and she expressed understanding. Advised to call in interim with questions or concerns. Follow Up: Patient is to return in 6 months for Repeat Pap. us Bandar Williamson DO IN CLINIC/BEDSIDE ORDERABLES Fin al Result * POC , urine (08/16/2024 4:05 PM EDT) Preg Test, Ur Negative Negative Urine 08/16/2024 4:05 PM EDT us Bandar Teri DO POINT OF CARE TEST ENTER/EDIT OR DERABLES Final Result * PATHOLOGY REQUEST FOR [facility] (08/16/2024 12:00 AM EDT) PATHOLOGY REQUEST FOR [facility] 08/23/2024 2:46 PM EDT [facility] Comment:See report. Scanned copy available in EMR. Other Topography unknown / Unknown 08/16/2024 08/17/2024 1:18 PM EDT Narrative [facility] - 08/23/2024 2:46 PM EDT ECC us Bandar Teri DO LAB BLOOD ORDERABLES Final Resul t Performing Organization Address City/State/[facility] Co de Phone Number [facility] [address] [place] [address], [facility] [address] [place] [address] from Last 3 Months Insurance [employer] Care Teams Manager Relationship Relationship Specialty Start Date End Date Carlos [place] MD [address] [place] [address] PCP - General Pediatrics 03/27/24
--- OUTSIDE RECORDS SUMMARY | 2024-09-21 09:17 | XMS_ITS | Encounter Summary ---
Author Organization [facility] Address [address] [place] [address] Care Team Providers Care As400 Programmer Name Role Phone Kasi Powers (Historical) Primary Care Provider Enma Jeffrey MD Unavailable [phone] Source Comments In the event this information is protected by the Federal Confidentiality of Alcohol and Drug AbusePatient Records regulations: The Federal rules restrict any use of the information to criminally investigate or prosecute any alcohol or drug abuse patient.[facility] Encounter Details Date Type Department Care Team ([facility] Contact Info) Description 03/26/2021 Patient Msg Obstetrics/Gynecology [address] [place] [address] Provider, Bienvenido Missed Appointment Social [...] N ot on file 07/24/2020 Data from: https://www.neighborhoodatlas.medicine.[facility].edu/. Last address used for calculation Not on [...] on filedocumented in this encounter Care Teams As400 Programmer Relationship Specialty Start Date End Date June, Kasi Castle (Historical) PCP - General 07/21/11 Enma Jeffrey MD [address] [place] [address] Referring First Aid Instructor 03/31/24 documented as of this encounter
--- OUTSIDE RECORDS SUMMARY | 2024-09-21 09:17 | XMS_ITS | Encounter Summary ---
Author Organization [facility] Address [address] [place] [address] Care Team Providers Care Boat Hand Name Role Phone Kasi Powers (Historical) Primary Care Provider Enma Jeffrey MD Unavailable [phone] Source Comments In the event this information is protected by the Federal Confidentiality of Alcohol and Drug AbusePatient Records regulations: The Federal rules restrict any use of the information to criminally investigate or prosecute any alcohol or drug abuse patient.[facility] Encounter Details Date Type Department Care Team ([facility] Contact Info) Description 01/28/2021 Patient Msg Pediatrics [address] [place] [address] Provider, [facility] Neonatology Pre-Stephanie consult Social History [...] N ot on file 07/24/2020 Data from: https://www.neighborhoodatlas.medicine.[facility].edu/. Last address used for calculation Not [...] on filedocumented in this encounter Care Teams Boat Hand Relationship Specialty Start Date End Date June, Kasi Castle (Historical) PCP - General 07/21/11 Enma Jeffrey MD [address] [facility] [address] [place] [address] Referring Racing Driver 03/31/24 documented as of this encounter
--- OUTSIDE RECORDS SUMMARY | 2024-09-21 09:17 | XMS_ITS | Encounter Summary ---
Author Organization [facility] Address [address] [place] [address] Care Team Providers Care Bobbin Trucker Name Role Phone Kasi Powers (Historical) Primary Care Provider Enma Jeffrey MD Unavailable Source Comments In the event this information is protected by the Federal Confidentiality of Alcohol and Drug AbusePatient Records regulations: The Federal rules restrict any use of the information to criminally investigate or prosecute any alcohol or drug abuse patient.[facility] Encounter Details Date Type Department Care Team ([facility] Contact Info) Description 01/31/2021 Patient Msg Obstetrics/Gynecology [address] [place] [address] Provider, [facility] Social History [...] N ot on file 07/24/2020 Data from: https://www.neighborhoodatlas.medicine.[facility].edu/. Last address used for calculation Not [...] on filedocumented in this encounter Care Teams Bobbin Trucker Relationship Specialty Start Date End Date June, Kasi Castle (Historical) PCP - General 07/21/11 Enma Jeffrey MD [address] [place] [id number] Referring Licensed Physical Therapist Assistant 03/31/24 documented as of this encounter
--- OUTSIDE RECORDS SUMMARY | 2024-09-21 09:17 | XMS_ITS | Encounter Summary ---
Author Organization [facility] Address [address] [place] [address] Care Team Providers Care Utility Person Name Role Phone Kasi Powers (Historical) Primary Care Provider Enma Jeffrey MD Unavailable [phone] Source Comments In the event this information is protected by the Federal Confidentiality of Alcohol and Drug AbusePatient Records regulations: The Federal rules restrict any use of the information to criminally investigate or prosecute any alcohol or drug abuse patient.[facility] Encounter Details Date Type Department Care Team ([facility] Contact Info) Description 02/20/2021 Get Medical Advice Obstetrics/Gynecolog y [address] [place] [address] [place] [address] [place] [address] My appointment coming up Social History Tobacco [...] place to sleep or slept in a nursing home (including now)? No 02/03/2021 Area Deprivation Index Answer Date Jatinder rded National Score (1-100), lower number is lower ri sk Not on file 07/24/2020 State Score (1-10), lower number is lower risk N ot on file 07/24/2020 Data from: https://www.neighborhoodatlas.medicine.[facility].edu/. Last address used for calculation [...] on filedocumented in this encounter Care Teams Utility Person Relationship Specialty Start Date End Date JuneKasi (Historical) PCP - General 07/21/11 Enma Jeffrey MD [address] [facility] [address] [place] [address] Referring Car Painter 03/31/24 documented as of this encounter
--- NOTE | 2024-09-21 09:53 | XR_ITS ---
[address] [address] Patient Name: SAMARA TRIANA MRN: [id number] date: 1990 Sex: F Assigned Patient Location: [facility] Current Patient Location: [facility] Accession/Order Number: [id number] Exam Date: 09/21/2024 10:50 Report Date: 09/21/2024 10:51 At the request of: TYRONE BLACKWELL DO Procedure: XR chest 2V Chest 2 views CLINICAL HISTORY: Preop exam COMPARISON: None FINDINGS: Heart normal in size. Lungs are clear. No free air. XR/XR chest 2V IMPRESSION: NO ACUTE CARDIOPULMONARY ABNORMALITY. Impression dictated by: Aguilar Hebert Jr., D.O. 09/21/2024 10:51 AM Dictation Location: [place] [address] Electronically authenticated by: [id number] Y Date: 09/21/2024 10:51
== END 2024-09-21 09:13 | disposition home or self-care (01) ==
PROVIDERS: Visit Provider Obstetrics & Gynecology
DX: Z01.810 Encounter for preprocedural cardiovascular examination (principal); R87.612 Low grade squamous intraepithelial lesion on cytologic smear of cervix (LGSIL); Z87.42 Personal history of other diseases of the female genital tract
CPT/HCPCS: 71046; 93005

== ENCOUNTER 2024-10-05 11:18 | Day surgery (SDC) | payer OTHER, SELFPAY ==
[2024-09-21 10:03] VITALS: BP 148/97; PULSE 55; TEMP 36.2; O2SAT 100; BMI 27.5
[2024-10-05 11:27] LABS: Hematocrit 37.2 % (36.0-48.0); Hemoglobin 12.7 g/dL (12.0-16.0); Immature Granulocytes Abs Auto 0.02 10^3/uL (0.00-0.03); Immature Granulocytes Pct Auto 0.2 % (0.0-0.5); Lymphocytes Absolute Auto 2.1 10^3/uL (1.2-3.8); Mean Corpuscular HGB Conc 34.1 g/dL (29.9-35.2); Mean Corpuscular Hemoglobin 31.1 pg (26.7-34.0); Mean Corpuscular Volume 91.2 fL (81.0-99.0); Platelet Count 202 10^3/uL (150-450); Red Blood Count 4.08 10^6/uL (4.20-5.40); White Blood Count 8.2 10^3/uL (4.0-11.0)
[2024-10-05 11:39] LABS: Cannabinoid Screen Urine POSITIVE (NEGATIVE); Methamphetamines Screen Urine NEGATIVE (NEGATIVE); Tricyclic Antidepressant Urine NEGATIVE (NEGATIVE)
[2024-10-05 11:46] VITALS: BP 133/83; PULSE 61; TEMP 36.6; O2SAT 97; BMI 27.3
--- NOTE | 2024-10-05 12:44 | PM.ONB ---
Brief Operative Note Date of procedure: 10/05/24 Pre-op diagnosis general: cervical dysplasia Post-op diagnosis: same as pre-op Procedure: NAME OF PROCEDURE: [leep ] PROCEDURE: Patient was taken back to the Operating Room where she was given general anesthesia without difficulty. She was then placed in the dorsal lithotomy position. She was then prepped and draped in the normal sterile fashion. A weighted speculum was placed into the patient's vagina. The anterior lip of the cervix was identified and grasped with a single-tooth tenaculum. The patient's cervix was then copiously irrigated using vinegar.? Then, a Lugol Solution was also placed onto the patient's cervix which demonstrated increased uptake of the Lugol solution at the [5? ] o?clock and [?10 ] o?clock positions.? At that time, the LEEP portion of the procedure was performed, including both the [? 5] o?clock and [?10 ] o?clock positions. The ectocervix was sent out to Pathology. The patient's cervix was then coagulated using suction cautery. Excellent hemostasis was assured.? Monsel Solution was then placed onto the patient's cervix to help maintain adequate hemostasis. All instruments were removed from the patient's vagina. The anterior lip of the cervix demonstrated excellent hemostasis.? The patient tolerated the procedure well. Sponge, lap, and needle counts were correct x 2. The patient was taken to Recovery Room in stable condition. Anesthesia: MAC Surgeon: Bandar Williamson Estimated blood loss (mL): 5 Pathology: other (ectocervix) Condition: stable Disposition: PACU
[2024-10-05] MEDS: FERRIC SUBSULFATE 8 ML SOLUTION TOPICAL (12:46)
[2024-10-05] MEDS: IODINE/POTASSIUM IODIDE 8 ML SOLUTION TOPICAL (12:46)
[2024-10-05 12:48] VITALS: BP 98/46; PULSE 61; TEMP 36.2; O2SAT 96
[2024-10-05 13:03] VITALS: BP 129/78; PULSE 62; O2SAT 98
[2024-10-05] MEDS: KETOROLAC TROMETHAMINE 30 MG/ML VIAL IVP (13:08)
[2024-10-05 13:45] VITALS: BP 146/92; PULSE 53; O2SAT 99
== END 2024-10-05 13:45 | disposition home or self-care (01) ==
PROVIDERS: Visit Provider Obstetrics & Gynecology
PROC: (CPT 940; principal; 2024-10-05 12:30)
DX: R87.612 Low grade squamous intraepithelial lesion on cytologic smear of cervix (LGSIL) (principal); F17.210 Nicotine dependence, cigarettes, uncomplicated; Z87.42 Personal history of other diseases of the female genital tract; J45.909 Unspecified asthma, uncomplicated; I10 Essential (primary) hypertension; F41.9 Anxiety disorder, unspecified; F32.A Depression, unspecified
CPT/HCPCS: 57522; 36415; 80307; 84702; 85025; 88307; 88342; 88360; J1885; J2250; J2704; J3010